=== PATIENT | female | born 1950 | race Caucasian/White ===

== ENCOUNTER → 2016-05-22 | Outpatient (CLI) | payer OTHER, MEDICARE ==
[2016-05-22 16:23] LABS: BLOOD UREA NITROGEN 10 mg/dL (7-22); CALCIUM 10.9 mg/dL (8.7-10.7); CHLORIDE 104 meq/L (98-112); CREATININE 0.5 mg/dL (0.50-1.20); EST GLOMERULAR FILTRATION > 60 (>60 ml/min/1.73m(2)); GLUCOSE 104 mg/dL (78-110); POTASSIUM 4.1 meq/L (3.8-5.2); SODIUM 141 meq/L (135-145)
== END ==
LOC: MOB LAB 14:54
PROVIDERS: ATTEND Nurse Practitioner Family
DX: I10 Essential (primary) hypertension (principal); M85.80 Other specified disorders of bone density and structure, unspecified site; I25.119 Atherosclerotic heart disease of native coronary artery with unspecified angina pectoris; E03.9 Hypothyroidism, unspecified; E66.01 Morbid (severe) obesity due to excess calories; F17.210 Nicotine dependence, cigarettes, uncomplicated
CPT/HCPCS: 36415; 80048; 99213; G0463

== ENCOUNTER → 2016-05-25 | Outpatient (CLI) | payer OTHER, MEDICARE | LOC: MMPC 09:00 | PROVIDERS: ATTEND Nurse Practitioner Family | DX: M81.0 Age-related osteoporosis without current pathological fracture (principal) | CPT/HCPCS: G0463; J0897 ==

== ENCOUNTER 2016-06-25 08:32 | Emergency (ER) | payer OTHER, MEDICARE ==
[2016-06-25] MEDS ORDERED: ONDANSETRON 4 MG/2 ML VIAL IVP ONE (08:53)
[2016-06-25] MEDS ORDERED: Sodium Chloride 0.9% 1,000 ML PRIMARY IV ONE (08:53)
[2016-06-25] MEDS ORDERED: MORPHINE SULFATE 4 MG/1 ML IVP ONE (08:53)
[2016-06-25] MEDS ORDERED: IPRATROPIUM/ALBUTEROL SULFATE 3 ML NEB NEB ONE ×2 (08:53→09:00)
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
[2016-06-25 09:05] LABS: BASOPHILS # (AUTO) 0.03 10*3/UL; BASOPHILS % (AUTO) 0.5 % (0-1); EOSINOPHILS % (AUTO) 4.7 % (0-8); HEMATOCRIT 47.3 % (37.0-47.0); HEMOGLOBIN 15.8 g/dL (12.0-16.0); IMM GRAN % (AUTO) 0.5 % (0-5); IMM GRAN# (AUTO) 0.03 10*3/UL; LYMPHOCYTES # (AUTO) 1.87 10*3/uL; LYMPHOCYTES % (AUTO) 33.5 % (10-50); MEAN CORPUSCULAR HEMOGLOBIN 30.4 PG (27-31); MEAN CORPUSCULAR HGB CONC 33.4 g/dL (33-37); MONOCYTES # (AUTO) 0.55 10*3/UL (0.3-0.8); MONOCYTES % (AUTO) 9.9 % (5-15); NEUTROPHILS # (AUTO) 2.84 10*3/UL; NEUTROPHILS % (AUTO) 50.9 % (50-80); RDW COEFFICIENT OF VARIATION 14.8 % (11.5-14.5); RED BLOOD COUNT 5.19 10^6/uL (4.20-5.40); WHITE BLOOD COUNT 5.58 10^3/uL (4.8-10.8)
[2016-06-25 09:16] LABS: PLATELET MORPHOLOGY COMMENT NORMAL MORPHOLOGY (NORM)
[2016-06-25 09:23] VITALS: RESP 18; TEMP 97
[2016-06-25 09:31] LABS: ASPARTATE AMINO TRANSFERASE 35 IU/L (8-39); BILIRUBIN,TOTAL 0.4 mg/dL (0.3-1.2); BLOOD UREA NITROGEN 13 mg/dL (7-22); CALCIUM 10.8 mg/dL (8.7-10.7); CHLORIDE 105 meq/L (98-112); CREATININE 0.5 mg/dL (0.50-1.20); EST GLOMERULAR FILTRATION > 60 (>60 ml/min/1.73m(2)); GLUCOSE 96 mg/dL (78-110); POTASSIUM 4.2 meq/L (3.8-5.2); SODIUM 140 meq/L (135-145); TOTAL PROTEIN 8.1 g/dL (6.1-8.0)
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
[2016-06-25 09:48] LABS: FREE T4 (FREE THYROXINE) 1.2 ng/dL (0.93-1.71)
[2016-06-25] MEDS ORDERED: LORazepam 2 MG/1 ML VIAL IVP ONE (10:01)
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
[2016-06-25 10:46] LABS: BILIRUBIN,URINE NEGATIVE (NEG); CLARITY,URINE CLEAR (CLEAR); GLUCOSE, URINE (UA) NEGATIVE (NEG); LEUKOCYTE ESTERASE ,URINE NEGATIVE (NEG); NITRATE,URINE NEGATIVE (NEG); OCCULT BLOOD,URINE NEGATIVE (NEG); PH,URINE 6.5 (5.0-8.5); PROTEIN,URINE NEGATIVE (NEG); UROBILINOGEN,URINE 0.2 EU/dL (0.2)
[2016-06-25 10:47] LABS: URINE SAMPLE TYPE CLEAN CATCH URINE
--- NOTE | 2016-06-25 13:57 | EKG ---
[address] [address] Measurements Intervals [place] Rate: 62 P: 77 PA: 184 QRS: 55 QRSD: 110 T: 44 QT: 393 QTc: 399 Interpretive Statements SINUS RHYTHM INCOMPLETE RIGHT BUNDLE BRANCH BLOCK Compared to ECG 11/01/2015 14:45:20 No significant changes Electronically Signed On 06-25-16 16:20:00 MST by Jose Carlos Kay [email or web address]
[2016-06-25] MEDS ORDERED: Sodium Chloride 0.9% 1,000 ML ONE (18:13)
== END 2016-06-25 11:08 | disposition home or self-care (01) ==
LOC: ER 08:32
DX: R07.89 Other chest pain (principal); R10.11 Right upper quadrant pain; R06.02 Shortness of breath; V43.52XA Car driver injured in collision with other type car in traffic accident, initial encounter
CPT/HCPCS: 71010; 71250; 74176; 80053; 81003; 83735; 84439; 84443; 84484; 85025; 93005; 93010; 94640; 96374; 96375; 99284 ×2; J7620; J2060; J2270; J2405; J7030

== ENCOUNTER → 2016-08-06 | Outpatient (CLI) | payer OTHER, MEDICARE | LOC: MMPC 09:00 | PROVIDERS: ATTEND Nurse Practitioner Family | DX: S20.211D Contusion of right front wall of thorax, subsequent encounter (principal); I10 Essential (primary) hypertension; E03.9 Hypothyroidism, unspecified; E55.9 Vitamin D deficiency, unspecified; F32.9 Major depressive disorder, single episode, unspecified; B37.2 Candidiasis of skin and nail; V43.52XD Car driver injured in collision with other type car in traffic accident, subsequent encounter | CPT/HCPCS: 99214; G0463 ==

== ENCOUNTER → 2016-10-01 | Outpatient (CLI) | payer OTHER, MEDICARE | LOC: MMPC 10:00 | PROVIDERS: ATTEND Orthopaedic Surgery | DX: M75.42 Impingement syndrome of left shoulder (principal); M75.22 Bicipital tendinitis, left shoulder; M19.012 Primary osteoarthritis, left shoulder | CPT/HCPCS: 20610 ×2; 99213; G0463; J0702 ==

== ENCOUNTER → 2016-10-22 | Outpatient (CLI) | payer OTHER, MEDICARE | LOC: MMPC 09:00 | PROVIDERS: ATTEND Nurse Practitioner Family | DX: R05 Cough (principal); J02.9 Acute pharyngitis, unspecified; R06.2 Wheezing; R10.816 Epigastric abdominal tenderness | CPT/HCPCS: 99213; G0463 ==

== ENCOUNTER 2016-10-29 13:52 | Emergency (ER) | payer OTHER, MEDICARE ==
[2016-10-29 14:01] VITALS: RESP 16; TEMP 98
[2016-10-29] MEDS ORDERED: HYDROcodone-APAP 5 MG -325 MG TABLET PO ONE (14:16)
[2016-10-29 14:19] LABS: BASOPHILS # (AUTO) 0.03 10*3/UL; BASOPHILS % (AUTO) 0.4 % (0-1); EOSINOPHILS # (AUTO) 0.22 10*3/UL; EOSINOPHILS % (AUTO) 3.3 % (0-8); HEMOGLOBIN 14.8 g/dL (12.0-16.0); LYMPHOCYTES # (AUTO) 1.75 10*3/uL; MEAN CORPUSCULAR HEMOGLOBIN 29.3 PG (27-31); MEAN CORPUSCULAR HGB CONC 32.9 g/dL (33-37); MEAN CORPUSCULAR VOLUME 89.1 FL (81-99); MONOCYTES # (AUTO) 0.62 10*3/UL (0.3-0.8); MONOCYTES % (AUTO) 9.2 % (5-15); NEUTROPHILS % (AUTO) 61.1 % (50-80); PLATELET MORPHOLOGY COMMENT NORMAL MORPHOLOGY (NORM); RBC MORPHOLOGY COMMENT NORMAL MORPHOLOGY (NORM); RED BLOOD COUNT 5.05 10^6/uL (4.20-5.40); WBC MORPHOLOGY COMMENT NORMAL MORPHOLOGY (NORM)
[2016-10-29 14:28] LABS: BLOOD UREA NITROGEN 13 mg/dL (7-22); BUN/CREATININE RATIO 21.66 (6-20); CALCIUM 10.3 mg/dL (8.7-10.7); EST GLOMERULAR FILTRATION > 60 (>60 ml/min/1.73m(2))
--- NOTE | 2016-10-29 15:06 | DI ---
VENOUS DOPPLER ULTRASOUND OF THE LEFT LOWER EXTREMITY, 10/29/2016 2:05 PM: Clinical History: Left leg swelling with erythema. Previous Exam: None. Technique: 2D real-time imaging is supplemented with color Doppler ultrasound. Compression and augmen tation maneuvers were performed. The deep venous system from the groin to the popliteal fossa is norm al. The greater saphenous vein is normal. Reading: Negative venous Doppler ultrasound of the left lower extremity.
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
== END 2016-10-29 15:22 | disposition home or self-care (01) ==
LOC: ER 13:52
DX: M79.662 Pain in left lower leg (principal); M25.462 Effusion, left knee; R22.42 Localized swelling, mass and lump, left lower limb; E78.5 Hyperlipidemia, unspecified; I10 Essential (primary) hypertension; X50.1XXA Overexertion from prolonged static or awkward postures, initial encounter; Y92.129 Unspecified place in nursing home as the place of occurrence of the external cause
CPT/HCPCS: 80048; 85025; 85610; 85730; 93971; 99283

== ENCOUNTER → 2016-10-31 | Outpatient (CLI) | payer OTHER, MEDICARE ==
[2016-10-31 07:12] LABS: BLOOD UREA NITROGEN 12 mg/dL (7-22); CALCIUM 10.9 mg/dL (8.7-10.7); CHOL/HDL RATIO 2.08 RATIO (0-4.0); EST GLOMERULAR FILTRATION > 60 (>60 ml/min/1.73m(2)); GAMMA GLUTAMYL TRANSPEPTIDASE 13 IU/L (8-78); HDL CHOLESTEROL 50 mg/dL (40-150); SERUM CHOLESTEROL 104 mg/dL (120-200)
[2016-10-31 07:29] LABS: VITAMIN D 25-HYDROXY 23.8 NG/ML (30-100)
== END ==
LOC: LAB 06:27
PROVIDERS: ATTEND Nurse Practitioner Family
DX: I10 Essential (primary) hypertension (principal); E55.9 Vitamin D deficiency, unspecified; E03.9 Hypothyroidism, unspecified; E78.5 Hyperlipidemia, unspecified
CPT/HCPCS: 36415; 80048; 82247; 82306; 82465; 82550; 82977; 83718; 84075; 84443; 84450; 84460; 84478

== ENCOUNTER → 2016-11-20 | Outpatient (CLI) | payer OTHER, MEDICARE | LOC: MMPC 10:00 | PROVIDERS: ATTEND Specialist | DX: I25.119 Atherosclerotic heart disease of native coronary artery with unspecified angina pectoris (principal); E78.5 Hyperlipidemia, unspecified; I10 Essential (primary) hypertension; E66.8 Other obesity | CPT/HCPCS: 99213; G0463 ==

== ENCOUNTER → 2016-11-26 | Outpatient (CLI) | payer OTHER, MEDICARE | LOC: MMPC 09:00 | PROVIDERS: ATTEND Nurse Practitioner Family | DX: E78.5 Hyperlipidemia, unspecified (principal); I10 Essential (primary) hypertension; E03.9 Hypothyroidism, unspecified; F32.0 Major depressive disorder, single episode, mild; M81.0 Age-related osteoporosis without current pathological fracture; E55.9 Vitamin D deficiency, unspecified; K21.9 Gastro-esophageal reflux disease without esophagitis | CPT/HCPCS: 99214; G0463; J0897 ==

== ENCOUNTER → 2016-12-03 | Outpatient (CLI) | payer OTHER, MEDICARE ==
--- NOTE | 2016-12-03 15:32 | DI ---
CT BONE DENSITOMETRY OF THE SPINE AND HIP, 12/03/2016 1:57 PM : Clinical History: Osteoporosis Previous Exam: June 25, [address] (QCT) Bone Mineral Densitometry: The [place] scans are normal. Low dose scans are obtained of the lumbar spine and sampling is obtaine d through the midbodies of L1 and L2. The average volumetric bone mineral density (BMD) of the lumbar spine is 91.7 mg/cm3. Volumetric 3D QCT and areal DEXA T-scores and Z-scores are not directly equiva lent. Using the [employer]'s (ACR) volumetric QCT trabecular spine BMD conversion table that is closely equivalent to the areal WHO diagnostic categories, this patient falls into the category of osteopenia. CT X-Ray Absorptiometry (CTXA) Hip Bone Mineral Densitometry: Low dose scans are obtained through the hips for assessment of bone mineral density (BMD) and T-score s and Z-scores of the left hip. Total hip BMD: 0.583 mg/cm2 T-score: -2.9 Z-score: Femoral neck BMD: 0.500 mg/cm2 T-score: -2.7 Z-score: Note: T-scores of the spine and hip exhibit discordant readings approximately 40% of the time in eval uated patients. Changes in BMD determined either by volumetric QCT or areal DEXA are more reliable in assessment of change in a patient's BMD status rather than changes in T-scores. The CTXA hip CT bone mineral density measurements and the resultant T-scores and Z-scores are exact hip DEXA scan equival ents. The femoral neck T-score can be used in the WHO's FRAX program for assessing an untreated patie nt's 10 year fracture risk. READING: Osteopenia of the lumbar spine and osteoporosis of the left hip. The patient is at high risk for development of insufficiency fractures of the left hip.
== END ==
LOC: CT 13:52
PROVIDERS: ATTEND Nurse Practitioner Family
DX: M81.0 Age-related osteoporosis without current pathological fracture (principal)
CPT/HCPCS: 77078

== ENCOUNTER 2018-04-18 11:40 | Inpatient (IN) ==
--- NOTE | 2018-04-18 11:50 | PDOC ---
Lower Extremity Injury HPI - General Chief Complaint: Lower Extremity Problem/Injury Stated Complaint: fall with right hip/right knee pain Date Seen by Provider: 04/18/18 Time Seen by Provider: 11:42 Source: POSITIVE: Patient, EMS Exam Limitations: POSITIVE: No limitations - History of Present Illness Initial Comments: This is a well-developed, well-nourished, 67-year-old female, who is very pleasant, complaining of right hip and right knee pain. Patient underwent radiation treatment yesterday for colon cancer. This morning she fell trying to put her clothes on resulting in a pop, deformity, and pain in her right hip and knee. She was able to crawl to a doorway where she could call to her who has Parkinson's and dementia and alert him that she needed help. The then contacted home health care who came and found the patient down and EMS was alerted. By the time EMS arrived she had been down approximately an hour. She was lying on her left side with complaints of right hip and knee pain and had been incontinent of stool. She denies any loss of consciousness and no other injury pattern. Have you received a tetanus shot in the past 10 years?: Unknown Body Location Affected: REPORTS: Lower Extremity (R) Timing: REPORTS: Abrupt Duration: 1-3 hours Severity: Severe Quality: REPORTS: "Pain" Location at Time of Onset: REPORTS: Home Context of Injury: REPORTS: Fall Location of Injury: REPORTS: Knee (R), Other (Right hip) Modifying Factors: improves with: Movement, Nothing Relieves Associated Symptoms: REPORTS: Unable to Bear Weight, Snapping Any Prior Injuries Related to Current Complaint?: No - Patient Home Medications Home Medications: Home Medications Aspirin [Aspir 81] 81 mg PO DAILY tab 05/02/15 cholecalciferol (vitamin D3) 5,000 unit/mL oral drops 10,000 unit PO DAILY #1 drp 05/28/17 ondansetron 8 mg disintegrating tablet 8 mg TRANSLING .Q6HS #20 tab 08/29/17 atorvastatin 20 mg tablet 20 mg PO QD #90 tab 11/25/17 bimatoprost 0.01 % eye drops 1 drp OP QPM 11/25/17 brimonidine-timolol 0.2 %-0.5 % eye drops 2 drp OP QDAY ml 11/25/17 calcium carbonate 500 mg calcium (1,250 mg) tablet 500 mg PO QDAY tab 11/25/17 capecitabine 500 mg tablet 1,250 mg PO Q12H tab 11/25/17 citalopram 20 mg tablet 20 mg PO QD #90 tab 11/25/17 levothyroxine 112 mcg tablet 112 mcg PO QD #90 tab 11/25/17 lidocaine-prilocaine 2.5 %-2.5 % topical cream 1 applic TOPICAL ONCE PRN #5 g 11/25/17 lorazepam 1 mg tablet 1 mg PO Q8H PRN tab 11/25/17 metoprolol succinate ER 25 mg tablet,extended release 24 hr 25 mg PO DAILY #90 tab 11/25/17 pantoprazole 40 mg tablet,delayed release 40 mg PO BID #180 tab 11/25/17 prochlorperazine maleate 10 mg tablet 10 mg PO Q8H PRN tab 11/25/17 potassium chloride ER 20 mEq tablet,extended release 20 meq PO QDAY 01/08/18 incontinence pad, liner, disposable See Dose Instructions .ROUTE .MEDSUPPLY #200 ea 02/07/18 incontinence pad, liner, disposable See Dose Instructions .ROUTE .MEDSUPPLY #200 ea 03/10/18 diphenoxylate-atropine 2.5 mg-0.025 mg tablet 1 tab PO Q6-8H PRN 04/14/18 - Patient Allergies Allergies/Adverse Reactions: Allergies Allergy/AdvReac Type Severity Reaction Status Date / Time iodine Allergy Intermediate hives/itchi Verified 04/19/18 06:40 ng shellfish derived Allergy Intermediate RASH Verified 04/19/18 06:40 paper tape Allergy Mild BLISTER, Uncoded 04/19/18 06:40 PEELED SKIN Past Medical History - heen HEENT History: Dentures/Partials Cardiovascular History: Hypertension, CHF, Previous HI, Hyperlipidemia Additional Cardiovasular History: HYPERTENSION Respiratory History: Sleep Apnea, Home CPAP Use Gastrointestinal History: GERD, Other (please comment) Additional Gastrointestinal History: HX OF HERNIAS/HAS ABDOMINAL WALL MASS HAS DOCUMENTED 90 POUND WEIGHT LOSS. HAD GASTRIC BYPASS. Colon CA Genitourinary History: Incontinence Additional Genitourinary History: STRESS INCONTINENCE Endocrine History: Hypothyroidism Musculoskeletal History: Osteoporosis, Back Pain, Joint Pain, Other (please comment) Prosthesis or Implant: Yes (R WRIST/BACK hardware) Additional Musculoskeletal History: OSTEOPENIA/ CHRONIC BACK PAIN. Compression fractures. Neurological History: Motion Sickness Blood Disorders: Denies History Psychiatric History: Depression History of Sexually Transmitted Diseases: No Cancer History: Colon History of MDRO: No History of Other Communicable Diseases: Yes (Varicella) Alcohol Use: None In the Past 12 Months, Have Used or Abuse Any Substance: None Previous Surgical History: Yes Type / Date of Surgery: BOWEL RESECTION/S/P GASTRIC BYPASS SURG/ TOTAL ABD HYSTERECTOMY/LAP ELLIE/UMBILICAL HERNIA REPAIR/T&A/Bilat KNEE SCOPES/BACK SURGERY/BREAST BX/COLONOSCOPY IN 2010. R WRIST ORIF Anesthesia Reactions: No Malignant Hyperthermia: No Significant Family History: Asthma, Heart disease, Cancer, Diabetes, Hypertension Additional Family History: Stroke ROS - Limitations ROS Limitations: No Limitations Constitution: REPORTS: Denies Symptoms Cardiovascular: REPORTS: Denies Cardiac Symptoms Respiratory: REPORTS: Denies Resp Symptoms Neurological: REPORTS: Denies Neuro Symptoms Gastrointestinal: REPORTS: Denies GI Symptoms Endocrine: REPORTS: Denies Symptoms Musculoskeletal: REPORTS: Joint Pain (Right hip and knee) Genitourinary: REPORTS: Denies Symptoms Eyes: REPORTS: Denies Symptoms ENT: REPORTS: Denies Symptoms Skin: REPORTS: Denies Skin Symptoms Lympathic: REPORTS: Denies Lympathic Symptoms Immunologic: POSITIVE: Denies Symptoms Psychiatric: POSITIVE: Denies Psych Symptoms Lower Ext Complaint Exam - General Appearance General Appearance: POSITIVE: Alert, Cooperative, Severe Distress - Extremities Lower Extremity: POSITIVE: Skin Intact, No Joint Swelling, Soft Tissue Tenderness (Right hip and groin), Bony Tenderness (Tenderness over the greater trochanter of the femur on the right side as well as tenderness over her right patella and proximal tibia), Deformity (Right hip), Hip Pain on Leg Movement Lower Extremity Ligament: NEGATIVE: Pain on Anterior Drawer, Pain on Posterior Drawer, Laxity on Anterior Drawer, Laxity w/Posterior Drawer, Pain on Medial Stress, Pain on Lateral Stress, Laxity on Medial Stress, Laxity on Lateral Stress, Other Gait: POSITIVE: Unable to Bear Weight, Gait not Tested d/t Pain Neurovascular/Tendon: POSITIVE: Sensation Normal, Motor Normal, No Vascular Compromise Skin: POSITIVE: Warm, Dry - HEENT HEENT: POSITIVE: Head Inspection Nml, Eyes Inspection Nml, Ears Inspection Nml, Nose Inspection Nml, Oral/Dental Inspect. Nml, Pharynx Inspect. Nml, PERRL, EOMI - Neck / Back Neck/Back: POSITIVE: Normal Inspection, Non-Tender - Respiratory / CVS Respiratory / CVS: POSITIVE: Chest Non Tender, No Ecchymosis, Breath Sounds Normal, No Respiratory Distress, Heart Sounds Normal, Regular Rate/Rhythm Peripheral Pulses: Radial (R): 4+, Dorsalis-pedis (R): 4+, Dorsalis-pedis (L): 4+ - Abdomen Abdomen: Soft: (All Quadrants), Normal Bowel Sounds: (All Quadrants), Denies Tenderness: (All Quadrants), No Splenomegaly: (All Quadrants), No Hepatomegaly: (All Quadrants), No Guarding: (All Quadrants), No Rebound: (All Quadrants), No Palpable Pulse: (All Quadrants), No Palpabale Mass: (All Quadrants), No Distention: (All Quadrants), No Rigidity: (All Quadrants) Procedures - Laceration/Wound Repair Did patient have a laceration repair: No Lower Ext Complaint Progress - Results Reviewed by me Xrays/CTs/US Reviewed by me: Yes Discussed with Radiologist: Yes CBC and BMP: 04/18/18 11:40 04/18/18 11:40 Lab Results:: Laboratory Results 04/18/18 04/18/18 04/18/18 11:40 11:40 11:40 WBC 4.47 L RBC 3.81 L Hgb 12.8 Hct 39.0 MCV 102.4 H MCH 33.6 H MCHC 32.8 L RDW Std Deviation 65.5 H RDW Coeff of Driss 17.8 H Plt Count 157 MPV 10.2 Immature Gran % (Auto) 0.4 Neut % (Auto) 76.3 Lymph % (Auto) 11.0 [place] % (Auto) 11.0 Eos % (Auto) 1.1 Baso % (Auto) 0.2 Immature Gran # (Auto) 0.02 Neut # (Auto) 3.41 Lymph # (Auto) 0.49 [place] # (Auto) 0.49 Eos # (Auto) 0.05 Baso # (Auto) 0.01 WBC Morphology Comment Normal morphology Plt Morphology Comment Normal morphology RBC Morph Comment See comments PT 10.7 INR 1.04 Sodium 136 Potassium 4.3 Chloride 108 Carbon Dioxide 23 Anion Gap 5 BUN 12 Creatinine 0.6 Estimated GFR > 60 BUN/Creatinine Ratio 20.00 Glucose 95 Calculated Osmolality 281.0 Calcium 10.1 Magnesium 1.8 Total Bilirubin 0.5 AST 24 ALT 27 Alkaline Phosphatase 130 H C-Reactive Protein 0.6 Total Protein 5.8 L Albumin 2.8 L Globulin 3.0 Albumin/Globulin Ratio 0.90 L Ur Collection Type Urine Color Urine Clarity Urine pH Ur Specific [place] Urine Protein Urine Glucose (UA) Urine Ketones Urine Occult Blood Urine Nitrate Urine Bilirubin Urine Urobilinogen Ur Leukocyte Esterase Ur Culture Indicated? 04/18/18 13:49 WBC RBC Hgb Hct MCV MCH MCHC RDW Std Deviation RDW Coeff of [place]iss Plt Count MPV Immature Gran % (Auto) Neut % (Auto) Lymph % (Auto) [place] % (Auto) Eos % (Auto) Baso % (Auto) Immature Gran # (Auto) Neut # (Auto) Lymph # (Auto) [place] # (Auto) Eos # (Auto) Baso # (Auto) WBC Morphology Comment Plt Morphology Comment RBC Morph Comment PT INR Sodium Potassium Chloride Carbon Dioxide Anion Gap BUN Creatinine Estimated GFR BUN/Creatinine Ratio Glucose Calculated Osmolality Calcium Magnesium Total Bilirubin AST ALT Alkaline Phosphatase C-Reactive Protein Total Protein Albumin Globulin Albumin/Globulin Ratio Ur Collection Type Clean catch urine Urine Color Yellow Urine Clarity Clear Urine pH 5.5 Ur Specific [place] 1.015 Urine Protein Negative Urine Glucose (UA) Negative Urine Ketones Negative Urine Occult Blood Negative Urine Nitrate Negative Urine Bilirubin Negative Urine Urobilinogen 0.2 Ur Leukocyte Esterase Negative Ur Culture Indicated? Culture not set - Patient's Progress Pain Medication Addressed: POSITIVE: Yes Re-Examine Time:: 14:38 Status: POSITIVE: Improved MDM / ED Course: Patient was evaluated, x-ray of her right hip and knee were obtained, labs drawn, IV pain medication, fluids, and Zofran were provided. Findings: X-ray of right hip, per my interpretation, shows a impacted intertrochanteric fracture on the right hip. X-ray of her right knee, per my interpretation, shows no acute abnormalities. CBC shows white count of 4.47. CMP shows an alkaline phosphatase of 130, total protein of 5.8, albumin of 2.8. Magnesium is 1.8. Coag studies show PT of 10.7, INR 1.04. Assessment: Right hip fracture. Plan: I discussed patient with Dr. Ayon, the on-call orthopedic surgeon who will be seeing the patient on the floor. I have discussed patient with , the on-call hospitalist who is admitting the patient. Orthopedic instructions for 5 pounds of [place] traction and trapeze for movement. - Consult Counseled: POSITIVE: Patient, Family, RE: Lab Results, RE: Radiology Results, RE: DX Patient Care Time - Estimated PCT Patient Care Time (In Minutes): 45 Vital Signs - VS Reviewed Vital Signs Reviewed: Yes Discharge Clinical Impression: Intertrochanteric fracture of right hip Discharge Disposition: Admit to Inpatient Condition: Stable Date Decision to Admit to Inpatient: 04/18/18 Time Decision to Admit to Inpatient: 14:30
[2018-04-18] MEDS ORDERED: MORPHINE SULFATE 4 MG/1 ML IVP ONE ×2 (11:57→13:40)
[2018-04-18] MEDS ORDERED: Sodium Chloride 0.9% 1,000 ML PRIMARY IV ONE (11:57)
[2018-04-18] MEDS ORDERED: ONDANSETRON 4 MG/2 ML VIAL IVP ONE (11:57)
[2018-04-18] MEDS ORDERED: LIDOCAINE HCL 2 % 10 ML JELLY URO-JECT TOPICAL PRN (11:57)
[2018-04-18 12:05] LABS: BASOPHILS # (AUTO) 0.01 10*3/UL; BASOPHILS % (AUTO) 0.2 % (0-1); EOSINOPHILS # (AUTO) 0.05 10*3/UL; EOSINOPHILS % (AUTO) 1.1 % (0-8); Hemoglobin [HGB] 12.8 g/dL (12.0-16.0); LYMPHOCYTES # (AUTO) 0.49 10*3/uL; MEAN CORPUSCULAR HEMOGLOBIN 33.6 PG (27-31); MEAN CORPUSCULAR HGB CONC 32.8 g/dL (33-37); MEAN CORPUSCULAR VOLUME 102.4 FL (81-99); MEAN PLATELET VOLUME 10.2 FL (7.4-12.2); MONOCYTES # (AUTO) 0.49 10*3/UL (0.3-0.8); NEUTROPHILS # (AUTO) 3.41 10*3/UL; NEUTROPHILS % (AUTO) 76.3 % (50-80); RED BLOOD COUNT 3.81 10^6/uL (4.20-5.40)
[2018-04-18 12:13] LABS: BLOOD UREA NITROGEN 12 mg/dL (7-22); SERUM ALBUMIN 2.8 g/dL (3.5-4.8)
[2018-04-18 12:16] LABS: PLATELET MORPHOLOGY COMMENT NORMAL MORPHOLOGY (NORM); RBC MORPHOLOGY COMMENT SEE COMMENTS (NORM); WBC MORPHOLOGY COMMENT NORMAL MORPHOLOGY (NORM)
[2018-04-18 13:55] LABS: BILIRUBIN,URINE NEGATIVE (NEG); CLARITY,URINE CLEAR (CLEAR); COLOR,URINE YELLOW (Y); GLUCOSE, URINE (UA) NEGATIVE (NEG); OCCULT BLOOD,URINE NEGATIVE (NEG); PH,URINE 5.5 (5.0-8.5); PROTEIN,URINE NEGATIVE (NEG); UROBILINOGEN,URINE 0.2 EU/dL (0.2)
[2018-04-18 13:58] LABS: URINE SAMPLE TYPE CLEAN CATCH URINE
[2018-04-18] MEDS ORDERED: LORazepam 2 MG/1 ML VIAL IVP ONE (14:04)
--- NOTE | 2018-04-18 15:29 | PDOC ---
HPI - History of Present Illness Date of Service: 04/18/18 Time of Service: 15:00 Chief Complaint: Pain in the right hip after a fall History of Present Illness: This is a 67 years old female with medical history significant for history of hypertension, sleep apnea, hypothyroidism and history of colon cancer for which she had right hemicolectomy back in July 2017, she underwent chemotherapy and was done with its last month, currently undergoing radiation adjuvant therapy. She was trying to put her cloths on so that she can go to [place] to have her radiation treatment and she is not clear about what happened she is not sure whether she passed out or not but she fell and was complaining from pain in her hip was unable to get up the physical therapist who came in found her and also a neighbor found her and they called the medics and they brought her to the ER. Evaluation in the ER revealed right hip fracture and because of that she was admitted. Currently it seems that her pain is controlled with the medication that she received in the ER. She is denying other symptoms there's no chest pain, no shortness of breath and no nausea. She lives with her who suffers from dementia, she has a caregiver and she uses a walker at home. She did report recent diarrhea and they think its related to the Radiation treatment. Past Medical History Medical History: 1. Hypertension. 2. Hypothyroidism. 3. History of obstructive sleep apnea. 4. Anxiety and depression. 5. Coronary artery disease by stress test. No heart catheterization or stents. 6. History of colon cancer status post right hemicolectomy and chemotherapy. Currently undergoing adjuvant radiation treatment Surgical History: 1. Cholecystectomy. 2. Gastric bypass. 3. Hysterectomy. 4. History of arthroscopic knee surgery. 5. Tonsillectomy. 6. History of vertebral fusion. 7. Right hemicolectomy for colon cancer Pertinent Family History: Father had emphysema Past Social History: . Does not have children. She does smoke a pack per day. No alcohol. No drugs. She has a caregiver help with shopping. Caregiver also with daycare to [place] for her radiation treatments. In the Past 12 Months, Have Used or Abuse Any of the Following Substance: None Alcohol Use: None Medication / Allergies Home Medications: Home Medications Medication Instructions Recorded Confirmed Type Aspirin [Aspir 81] 81 mg PO DAILY tab 05/02/15 04/15/18 History cholecalciferol (vitamin D3) 5,000 10,000 unit PO DAILY #1 drp 05/28/17 04/15/18 History unit/mL oral drops ondansetron 8 mg disintegrating 8 mg TRANSLING .Q6HS #20 tab 08/29/17 04/15/18 Rx tablet atorvastatin 20 mg tablet 20 mg PO QD #90 tab 11/25/17 04/15/18 Rx bimatoprost 0.01 % eye drops 1 drp OP QPM 11/25/17 04/15/18 History brimonidine-timolol 0.2 %-0.5 % 2 drp OP QDAY ml 11/25/17 04/15/18 History eye drops calcium carbonate 500 mg calcium 500 mg PO QDAY tab 11/25/17 04/15/18 History (1,250 mg) tablet capecitabine 500 mg tablet 1,250 mg PO Q12H tab 11/25/17 04/15/18 History citalopram 20 mg tablet 20 mg PO QD #90 tab 11/25/17 04/15/18 Rx levothyroxine 112 mcg tablet 112 mcg PO QD #90 tab 11/25/17 04/15/18 Rx lidocaine-prilocaine 2.5 %-2.5 % 1 applic TOPICAL ONCE PRN #5 g 11/25/17 04/15/18 Rx topical cream lorazepam 1 mg tablet 1 mg PO Q8H PRN tab 11/25/17 04/15/18 History metoprolol succinate ER 25 mg 25 mg PO DAILY #90 tab 11/25/17 04/15/18 Rx tablet,extended release 24 hr pantoprazole 40 mg tablet,delayed 40 mg PO BID #180 tab 11/25/17 04/15/18 Rx release prochlorperazine maleate 10 mg 10 mg PO Q8H PRN tab 11/25/17 04/15/18 History tablet potassium chloride ER 20 mEq 20 meq PO QDAY 01/08/18 04/15/18 History tablet,extended release incontinence pad, liner, disposable See Dose Instructions .ROUTE 02/07/18 04/15/18 Rx .MEDSUPPLY #200 ea incontinence pad, liner, disposable See Dose Instructions .ROUTE 03/10/18 04/15/18 Rx .MEDSUPPLY #200 ea diphenoxylate-atropine 2.5 1 tab PO Q6-8H PRN 04/14/18 04/15/18 History mg-0.025 mg tablet Allergies/Adverse Reactions: Allergies Allergy/AdvReac Type Severity Reaction Status Date / Time iodine Allergy Intermediate hives/itchi Verified 04/15/18 10:39 ng shellfish derived Allergy Intermediate RASH Verified 04/15/18 10:39 paper tape Allergy Mild BLISTER, Uncoded 04/14/18 16:08 PEELED SKIN Review of Systems - Review of Systems All Systems: Reviewed & No Additional Complaints Except as Stated Exam - General General Appearance: No Acute Distress, Cooperative, Obese - Head Head Exam: Normal Inspection - Eye Eye Exam: POSITIVE: Normal Appearance - ENT ENT Exam: POSITIVE: Normal Exam - Neck Neck Exam: Normal Inspection - Respiratory Respiratory Exam: POSITIVE: Clear to Auscultation - Bilaterally - Cardiovascular Cardiovascular Exam: POSITIVE: RRR - GI/Abdominal GI/Abdominal Exam: POSITIVE: Normal Bowel Sounds, Non Tender, Non Distended, Soft, No Organomegaly - Rectal Rectal Exam: POSITIVE: Deferred - External Exam: POSITIVE: Deferred Exam: POSITIVE: Deferred - Extremities Additional Extremities Exam Details: Shortened and externally rotated right leg - Back Back Exam: POSITIVE: Normal Inspection - Neurological Neurological Exam: POSITIVE: Alert, Oriented x 3, CN II-XII Intact, No Facial Droop, Speech Intact / Clear Additional Neurological Exam Details: Movements is restricted the right lower extremity because of pain - Psychiatric Psychiatric Exam: POSITIVE: Normal Affect Results - Labs CBC and BMP: 04/18/18 11:40 04/18/18 11:40 - EKG Data -: EKG Interpreted by Me Rate: Bradycardia - EKG Data EKG Interpretation: Other (Sinus bradycardia with incomplete right bundle branch block) - Imaging Status: Report Reviewed by Me (CT Slightly displaced and slightly comminuted right intertrochanteric fracture. Knee X ray Mild tricompartmental osteoarthritis. No fractures. Hip X ray Slightly displaced right proximal femo ral intertrochanteric fracture.) Assessment and Plan - Patient Problems (1) Intertrochanteric fracture of right hip Current Visit: Yes Status: Acute Comment: Continue pain medications. Will puts her in [place] traction. Dr. Ayon already knows about her, he will see her today and decide whether she can have the surgery tomorrow or the day after it depends on when he will get the parts that he may need. in terms of preoperative evaluation she has one independent predictor of major cardiac complication that include her positive stress test that wer puts her risk of cardiac , nonfatal myocardial infarction and fatal cardiac arrest at 1%. I think since her need for surgery seems to be urgent she can proceed with surgery will deal with postoperative complications as they arise. She did have surgery back in July and one of the complication that she had was hypoxia at that time it seemed to be secondary to volume overload and responded to Lasix. Code(s): S72.141A - Displaced intertrochanteric fracture of right femur, initial encounter for closed fracture (2) Benign hypertension Current Visit: No Status: Chronic Comment: Same med (3) Hypothyroidism Current Visit: No Status: Chronic Comment: Same med Qualifiers: Hypothyroidism type: acquired Qualified Code(s): E03.9 - Hypothyroidism, unspecified (4) Gastroesophageal reflux disease Current Visit: No Status: Chronic Comment: Continue Protonix Code(s): K21.9 - Gastro-esophageal reflux disease without esophagitis Qualifiers: Esophagitis presence: with esophagitis Qualified Code(s): K21.0 - Gastro- esophageal reflux disease with esophagitis
--- NOTE | 2018-04-18 15:50 | EKG ---
[address] [address] Measurements Intervals [place] Rate: 55 P: 92 SC: 179 QRS: 51 QRSD: 116 T: 45 QT: 417 QTc: 407 Interpretive Statements SINUS BRADYCARDIA RIGHT VENTRICULAR CONDUCTION DELAY Compared to ECG 01/14/2018 13:32:38 Sinus rhythm no longer present Sinus arrhythmia no longer present Electronically Signed On 04-19-18 13:57:[address] [facility] by Jose Carlos Kay [email or web address]
[2018-04-18] MEDS ORDERED: ONDANSETRON 4 MG/2 ML VIAL IVP PRN (15:54)
[2018-04-18] MEDS ORDERED: CALCIUM CARBONATE 500 MG (TUMS) CHEWABLE TABLET PO PRN (15:54)
[2018-04-18] MEDS ORDERED: DOCUSATE 100 MG CAPSULE PO PRN (15:54)
[2018-04-18] MEDS ORDERED: ACETAMINOPHEN 325 MG TABLET PO PRN (15:54)
[2018-04-18] MEDS ORDERED: LIDOCAINE W/ SODIUM BICARB 0.5 ML SYR SUBD PRN (15:54)
[2018-04-18] MEDS ORDERED: Diphenoxylate/Atropine 2.5/0.025 mg Tab PO PRN (15:57)
[2018-04-18] MEDS ORDERED: Prochlorperazine Tab 10 MG TAB PO PRN (15:57)
--- NOTE | 2018-04-18 16:11 | DI ---
CT Lower Extremity WO Contrast,04/18/2018 2:06 PM: Clinical History: Right hip fracture Previous Exam: None at this facility. Findings: Multiple helically acquired CT images are obtained through the right hip without contrast, and demons trate a slightly displaced and slightly comminuted right intertrochanteric fracture. There is no fracture of the superior and inferior pubic rami. There is mild diffuse osteopenia. Impression: Slightly displaced and slightly comminuted right intertrochanteric fracture.
--- NOTE | 2018-04-18 16:14 | DI ---
XR KNEE 1 OR 2 VWS,04/18/2018 11:57 AM: Clinical History: Right knee pain Previous Exam: None at this facility. Findings: AP and lateral views of the right knee are obtained, and demonstrate anatomic alignment without fract ures. There is mild loss of joint space tricompartmentally. Impression: Mild tricompartmental osteoarthritis. No fractures.
--- NOTE | 2018-04-18 16:18 | DI ---
XR HIP COMPLETE MIN 2VW U/L,04/18/2018 11:57 AM: Clinical History: Pain and deformity. Previous Exam: None at this facility. Findings: AP, frog-leg and crosstable lateral views of the right hip are obtained and demonstrate a slightly di splaced intertrochanteric right proximal femoral fracture. Impression: Slightly displaced right proximal femoral intertrochanteric fracture.
[2018-04-18] MEDS: MORPHINE SULFATE 2 MG/1 ML IVP PRN ×2 (16:38→19:07)
[2018-04-18] MEDS ORDERED: HEPARIN 500 UNIT/5 ML SYRINGE FOR CENTRAL LINE IVP PRN (17:13)
[2018-04-18] MEDS ORDERED: Lactated Ringers 1,000 ML PRIMARY IV SCH (17:30)
--- NOTE | 2018-04-18 20:18 | CONSULT ---
Consult Note - Consult Reason for Consult: PreOp Consulation : Ortho Primary Care Provider: Zofia Elena MS, DIRECTOR OF HOUSING AND ENERGY SERVICES - History of Present Illness History of Present Illness: This patient is a pleasant 67-year-old female who is admitted for right intertro chanteric hip fracture. She fell at her home earlier this morning. She is admitted by ambulance. Refer to Dr. Zambrano's thorough note. She is in need of IM hip screw fixation of the fracture. We will do this with a Depuy affixus nail. Exam of his pleasant female lying supine. Right leg is in Lepe's traction. No significant distress. Neurovascular exam appears to be intact. X-rays and CAT scan of her hip are reviewed. These show a right intertrochanteric hip fracture of the lesser fractured off. The fracture extends up into the superior neck as well. Inferior neck is still intact. Impression: Right intertrochanteric hip fracture patient with multiple comorbidities. She is a smoker and is undergoing radiation treatment for colon cancer. Plan on proceeding with an IM hip screw tomorrow. Risks include but are not limited to infection, hardware failure or cut out, blood clot, malunion, nonunion, neurovascular injury, or anesthetic risks. She agrees to proceed. Consent will be obtained in the morning. Plan on doing this around 8:30 tomorrow morning. Past Medical History Medical History: 1. Hypertension. 2. Hypothyroidism. 3. History of obstructive sleep apnea. 4. Anxiety and depression. 5. Coronary artery disease by stress test. No heart catheterization or stents. 6. History of colon cancer status post right hemicolectomy and chemotherapy. Currently undergoing adjuvant radiation treatment Surgical History: 1. Cholecystectomy. 2. Gastric bypass. 3. Hysterectomy. 4. History of arthroscopic knee surgery. 5. Tonsillectomy. 6. History of vertebral fusion. 7. Right hemicolectomy for colon cancer Pertinent Family History: Father had emphysema Past Social History: . Does not have children. She does smoke a pack per day. No alcohol. No drugs. She has a caregiver help with shopping. Caregiver also with daycare to [place] for her radiation treatments. In the Past 12 Months, Have Used or Abuse Any of the Following Substance: None Alcohol Use: None Medication / Allergies Home Medications: Home Medications Medication Instructions Recorded Confirmed Type Aspirin [Aspir 81] 81 mg PO DAILY tab 05/02/15 04/15/18 History cholecalciferol (vitamin D3) 5,000 10,000 unit PO DAILY #1 drp 05/28/17 04/15/18 History unit/mL oral drops ondansetron 8 mg disintegrating 8 mg TRANSLING .Q6HS #20 tab 08/29/17 04/15/18 Rx tablet atorvastatin 20 mg tablet 20 mg PO QD #90 tab 11/25/17 04/15/18 Rx bimatoprost 0.01 % eye drops 1 drp OP QPM 11/25/17 04/15/18 History brimonidine-timolol 0.2 %-0.5 % 2 drp OP QDAY ml 11/25/17 04/15/18 History eye drops calcium carbonate 500 mg calcium 500 mg PO QDAY tab 11/25/17 04/15/18 History (1,250 mg) tablet capecitabine 500 mg tablet 1,250 mg PO Q12H tab 11/25/17 04/15/18 History citalopram 20 mg tablet 20 mg PO QD #90 tab 11/25/17 04/15/18 Rx levothyroxine 112 mcg tablet 112 mcg PO QD #90 tab 11/25/17 04/15/18 Rx lidocaine-prilocaine 2.5 %-2.5 % 1 applic TOPICAL ONCE PRN #5 g 11/25/17 04/15/18 Rx topical cream lorazepam 1 mg tablet 1 mg PO Q8H PRN tab 11/25/17 04/15/18 History metoprolol succinate ER 25 mg 25 mg PO DAILY #90 tab 11/25/17 04/15/18 Rx tablet,extended release 24 hr pantoprazole 40 mg tablet,delayed 40 mg PO BID #180 tab 11/25/17 04/15/18 Rx release prochlorperazine maleate 10 mg 10 mg PO Q8H PRN tab 11/25/17 04/15/18 History tablet potassium chloride ER 20 mEq 20 meq PO QDAY 01/08/18 04/15/18 History tablet,extended release incontinence pad, liner, disposable See Dose Instructions .ROUTE 02/07/18 04/15/18 Rx .MEDSUPPLY #200 ea incontinence pad, liner, disposable See Dose Instructions .ROUTE 03/10/18 04/15/18 Rx .MEDSUPPLY #200 ea diphenoxylate-atropine 2.5 1 tab PO Q6-8H PRN 04/14/18 04/15/18 History mg-0.025 mg tablet Allergies/Adverse Reactions: Allergies Allergy/AdvReac Type Severity Reaction Status Date / Time iodine Allergy Intermediate hives/itchi Verified 04/15/18 10:39 ng shellfish derived Allergy Intermediate RASH Verified 04/15/18 10:39 paper tape Allergy Mild BLISTER, Uncoded 04/14/18 16:08 PEELED SKIN Exam - Vitals Vital Signs: Vital Signs Temperature 97.9 F Temperature Source Temporal Artery Scan Pulse Rate [Pulse Oximeter] 59 Respiratory Rate 16 Blood Pressure [Right Arm] 110/54 Pulse Ox 95 Oxygen Flow Rate 3 Oxygen Delivery Method Nasal Cannula Height 5 ft 1 in Weight 168 lb Results - Labs CBC and BMP: 04/18/18 11:40 04/18/18 11:40
[2018-04-18] MEDS: PANTOPRAZOLE 40 MG TABLET PO SCH (20:45)
[2018-04-18] MEDS ORDERED: ATORVASTATIN 20 MG TABLET PO SCH (21:00)
[2018-04-19] MEDS: MORPHINE SULFATE 2 MG/1 ML IVP PRN ×5 (00:02→23:11)
[2018-04-19] MEDS ORDERED: LEVOTHYROXINE 112 MCG TABLET PO SCH (05:30)
[2018-04-19] MEDS ORDERED: PROPOFOL 10 MG/1 ML (200 MG/20 ML) VIAL IV ONE (07:19)
[2018-04-19] MEDS ORDERED: fentaNYL Inj 250 MCG/5 ML VIAL ONE (07:19)
[2018-04-19] MEDS ORDERED: LIDOCAINE MPF 2% - 5 ML (20 MG/1 ML) ONE (07:19)
[2018-04-19] MEDS ORDERED: MIDAZOLAM HCL 2 MG/2 ML VIAL ONE (07:19)
[2018-04-19] MEDS ORDERED: ceFAZolin Inj 2gm (Premix) 2 GM/50 ML BAG IV ONE ×2 (07:20→07:24)
[2018-04-19] MEDS ORDERED: BUPivacaine Inj 0.25% PF - 10ml vial ONE (07:49)
[2018-04-19] MEDS ORDERED: KETAMINE 100 MG/1 ML - 5 ML ONE (08:34)
[2018-04-19] MEDS ORDERED: BUPivacaine Liposome/PF (Exparel) Inj 20ml vial INFIL ONE (08:43)
[2018-04-19] MEDS ORDERED: POTASSIUM CHLORIDE 20 MEQ TAB PO SCH (09:00)
[2018-04-19] MEDS ORDERED: CITALOPRAM 20 MG TABLET PO SCH (09:00)
[2018-04-19] MEDS ORDERED: METOPROLOL SUCCINATE 25 MG SR 24H TABLET PO SCH (09:00)
--- NOTE | 2018-04-19 10:19 | ORTHO.OP ---
Surgery Date: 04/19/18 Preoperative Diagnosis: Right intertrochanteric hip fracture Postoperative Diagnosis: Same Procedure: Open treatment right intertrochanter fracture using a intramedullary hip screw (Biomet affixus nail.) Surgeon: Yusuf Ayon MD Director Of Rehabilitation: PRIMO Zavala Anesthesia Provider: Meliton Carrion CRNA Anesthesia Type: General Estimated Blood Loss (mL): 125 Fluids: 1800 mL crystalloid Complications: None Operative Summary: Taken to recovery in stable condition.
[2018-04-19] MEDS ORDERED: ONDANSETRON 4 MG/2 ML VIAL ONE (10:22)
[2018-04-19] MEDS ORDERED: KETOROLAC 30 MG/1 ML VIAL ONE (10:22)
[2018-04-19] MEDS ORDERED: CALCIUM CARBONATE 500 MG (TUMS) CHEWABLE TABLET PO PRN (11:09)
[2018-04-19] MEDS ORDERED: ACETAMINOPHEN 325 MG TABLET PO PRN (11:09)
[2018-04-19] MEDS ORDERED: HEPARIN 500 UNIT/5 ML SYRINGE FOR CENTRAL LINE IVP PRN (11:09)
[2018-04-19] MEDS ORDERED: LIDOCAINE W/ SODIUM BICARB 0.5 ML SYR SUBD PRN (11:09)
[2018-04-19] MEDS ORDERED: DOCUSATE 100 MG CAPSULE PO PRN (11:09)
[2018-04-19] MEDS ORDERED: ONDANSETRON 4 MG/2 ML VIAL IVP PRN ×2 (11:09)
[2018-04-19] MEDS: PANTOPRAZOLE 40 MG TABLET PO SCH ×2 (11:24→16:29)
--- NOTE | 2018-04-19 11:38 | CRNA.PROGR ---
Anesthesia Time - Procedure/Recovery Time Start Date: 04/19/18 End Date: 04/19/18 Anesthesia : Time In: 07:57 Anesthesia : Time Out: 10:44 Anesthesia : Total Time: 167 - Total Anesthesia Time Total Anesthesia Time (minutes): 167 - Other Weight: 76.204 kg Height: 5 ft 1 in Body Mass Index (BMI): 31.7 Physical Status: P3 Anesthesia Type: General Anesthesia : LMA
--- NOTE | 2018-04-19 11:38 | CRNA.PROGR ---
Anesthesia Recovery Phase I - Post Anesthesia Evaluation Patient's Condition on Arrival in Phase I: Stable Pain Level: 0
--- NOTE | 2018-04-19 12:19 | DI ---
RIGHT HIP, 04/19/2018 10:31 AM: Clinical History: Intertrochanteric fracture. Status post ORIF. Previous Exam: 04/18/2018. Hip View: AP and cross table lateral. Soft Tissues: Normal. Bony Pelvis: The visualized portions are intact. Femoral Head/Neck Junction: A short intramedullary lori has been inserted and this is transfixed with a distal threaded screw. 2 threaded screws transfix the base of the neck/intertrochanteric fracture. The fracture is anatomic alignment and position. Acetabulum: Intact Hip Joint Space: Normal joint space. Reading: Status post ORIF of a base of the neck/intertrochanteric fracture. Alignment and position are anatomi c.
--- NOTE | 2018-04-19 12:30 | PDOC(PROG) ---
Date of Service: 04/19/18 Time of Service: 11:00 Interval History: Subjective Patient was seen postsurgery. She is denying complaint. There is no shortness of breath, no nausea. No pain. Objective : Data - Labs CBC and BMP: 04/18/18 11:40 04/18/18 11:40 Objective : Exam - General General Appearance: No Acute Distress, Cooperative - Head Head Exam: Normal Inspection - Eye Eye Exam: Normal Appearance - ENT ENT Exam: Normal Exam - Neck Neck Exam: Normal Inspection - Respiratory Respiratory Exam: Clear to Auscultation - Bilaterally - Cardiovascular Cardiovascular Exam: RRR - GI/Abdominal GI/Abdominal Exam: Normal Bowel Sounds, Non Tender, Non Distended, Soft - Rectal Rectal Exam: Deferred - External Exam: Deferred Assessment and Plan - Patient Problems (1) Intertrochanteric fracture of right hip Current Visit: Yes Status: Acute Comment: Status post surgery. PT/OT he will be consulted. Will discuss with Dr. Ayon DVT prophylaxis Code(s): S72.141A - Displaced intertrochanteric fracture of right femur, initial encounter for closed fracture (2) Benign hypertension Current Visit: No Status: Chronic Comment: Resume same medications (3) Hypothyroidism Current Visit: No Status: Chronic Comment: Same med Qualifiers: Hypothyroidism type: acquired Qualified Code(s): E03.9 - Hypothyroidism, unspecified (4) Gastroesophageal reflux disease Current Visit: No Status: Chronic Comment: Continue Protonix Code(s): K21.9 - Gastro-esophageal reflux disease without esophagitis Qualifiers: Esophagitis presence: with esophagitis Qualified Code(s): K21.0 - Gastro- esophageal reflux disease with esophagitis
[2018-04-19] MEDS: HYDROcodone-APAP 7.5 MG-325 MG TABLET PO PRN ×3 (12:39→23:07)
[2018-04-19] MEDS: ceFAZolin Inj 2gm (Premix) 2 GM/50 ML BAG IV SCH (16:29)
[2018-04-19] MEDS: ATORVASTATIN 20 MG TABLET PO SCH (20:45)
[2018-04-19] MEDS: DOCUSATE 100 MG CAPSULE PO SCH (20:49)
[2018-04-20] MEDS: ceFAZolin Inj 2gm (Premix) 2 GM/50 ML BAG IV SCH (00:19)
[2018-04-20] MEDS: HYDROcodone-APAP 7.5 MG-325 MG TABLET PO PRN ×2 (03:00→07:25)
[2018-04-20 05:35] LABS: BASOPHILS # (AUTO) 0 10*3/UL; BASOPHILS % (AUTO) 0 % (0-1); EOSINOPHILS # (AUTO) 0.06 10*3/UL; EOSINOPHILS % (AUTO) 1.9 % (0-8); Hematocrit [HCT] 31.5 % (37.0-47.0); Hemoglobin [HGB] 10.1 g/dL (12.0-16.0); MEAN CORPUSCULAR HEMOGLOBIN 33.2 PG (27-31); MEAN CORPUSCULAR HGB CONC 32.1 g/dL (33-37); MEAN CORPUSCULAR VOLUME 103.6 FL (81-99); MEAN PLATELET VOLUME 10.1 FL (7.4-12.2); MONOCYTES # (AUTO) 0.32 10*3/UL (0.3-0.8); MONOCYTES % (AUTO) 10.2 % (5-15); NEUTROPHILS # (AUTO) 2.33 10*3/UL; NEUTROPHILS % (AUTO) 74.5 % (50-80); RED BLOOD COUNT 3.04 10^6/uL (4.20-5.40)
[2018-04-20 05:49] LABS: BLOOD UREA NITROGEN 11 mg/dL (7-22)
[2018-04-20] MEDS: LEVOTHYROXINE 112 MCG TABLET PO SCH (05:58)
[2018-04-20 06:06] LABS: PLATELET MORPHOLOGY COMMENT NORMAL MORPHOLOGY (NORM); RBC MORPHOLOGY COMMENT NORMAL MORPHOLOGY (NORM); WBC MORPHOLOGY COMMENT NORMAL MORPHOLOGY (NORM)
[2018-04-20] MEDS: TIMOLOL OP SCH ×2 (06:30→11:37)
[2018-04-20] MEDS: BRIMONIDINE TARTRATE OP SCH ×2 (06:30→11:37)
[2018-04-20] MEDS: PANTOPRAZOLE 40 MG TABLET PO SCH ×2 (07:10→17:06)
[2018-04-20] MEDS: MORPHINE SULFATE 2 MG/1 ML IVP PRN (07:40)
--- NOTE | 2018-04-20 08:11 | ORTHO.PROG ---
Last Taken Vital Signs: Vital Signs - Last Taken Temperature 97.2 F 04/20/18 05:00 Pulse Rate 55 L 04/20/18 07:00 Respiratory Rate 16 04/20/18 05:00 Blood Pressure 98/50 04/20/18 05:00 Pulse Ox 96 04/20/18 05:00 Subjective: Patient in chair. Getting ready to get up with physical therapy. Silviano was in the room. Patient complains of right knee pain and also nausea hip is actually doing pretty well. Objective: Vital signs stable patient afebrile. Right knee is tender to touch. No instability. No effusion. Right hip dressings are clean and dry. Hemoglobin and hematocrit 10 and 31. Assessment: Impression: Doing fairly well postop day 1 from IM rodding of right hip fracture. Patient does have some nausea and knee pain. Plan: Plan: Is to get an x-ray of her right knee and also make sure she is taking her nausea medication. Transfers in PT.
[2018-04-20] MEDS ORDERED: CHOLECALCIFEROL 1000 IU TABLET PO SCH (09:00)
[2018-04-20] MEDS ORDERED: METOPROLOL SUCCINATE 25 MG SR 24H TABLET PO SCH (09:00)
--- NOTE | 2018-04-20 09:19 | PDOC(PROG) ---
Date of Service: 04/20/18 Time of Service: 09:20 Interval History: Subjective Patient is complaining from pain in the right knee and the hip. It seems though that her pain is controlled with the current pain medications. She has nausea but she said its going on since she started the radiation treatment. Objective : Data - Labs CBC and BMP: 04/20/18 04:30 04/20/18 04:30 Objective : Exam - General General Appearance: No Acute Distress, Cooperative - Head Head Exam: Normal Inspection - Eye Eye Exam: Normal Appearance - ENT ENT Exam: Normal Exam - Neck Neck Exam: Normal Inspection - Respiratory Respiratory Exam: Clear to Auscultation - Bilaterally - Cardiovascular Cardiovascular Exam: RRR - GI/Abdominal GI/Abdominal Exam: Normal Bowel Sounds, Non Tender, Non Distended, Soft, No Organomegaly - Rectal Rectal Exam: Deferred - External Exam: Deferred - Extremities Extremities Exam: Normal Inspection - Back Back Exam: Normal Inspection - Neurological Neurological Exam: Alert, Oriented x 3, CN II-XII Intact - Psychiatric Psychiatric Exam: Normal Affect Assessment and Plan - Patient Problems (1) Intertrochanteric fracture of right hip Current Visit: Yes Status: Acute Comment: Status post surgery. For DVT prophylaxis will start her on Lovenox. Continue PT and OT. Code(s): S72.141A - Displaced intertrochanteric fracture of right femur, initial encounter for closed fracture (2) Benign hypertension Current Visit: No Status: Chronic Comment: Blood pressure is on the low side will hold her metoprolol today. (3) Hypothyroidism Current Visit: No Status: Chronic Comment: Same med Qualifiers: Hypothyroidism type: acquired Qualified Code(s): E03.9 - Hypothyroidism, unspecified (4) Gastroesophageal reflux disease Current Visit: No Status: Chronic Comment: Continue Protonix Code(s): K21.9 - Gastro-esophageal reflux disease without esophagitis Qualifiers: Esophagitis presence: with esophagitis Qualified Code(s): K21.0 - Gastro- esophageal reflux disease with esophagitis
[2018-04-20] MEDS: CITALOPRAM 20 MG TABLET PO SCH (09:38)
[2018-04-20] MEDS: POTASSIUM CHLORIDE 20 MEQ TAB PO SCH (09:38)
[2018-04-20] MEDS: CALCIUM CARBONATE 500 MG (TUMS) CHEWABLE TABLET PO SCH (09:38)
[2018-04-20] MEDS: DOCUSATE 100 MG CAPSULE PO SCH ×2 (09:38→20:30)
[2018-04-20] MEDS: Diphenoxylate/Atropine 2.5/0.025 mg Tab PO PRN (12:19)
[2018-04-20] MEDS: ENOXAPARIN SODIUM 40 MG/0.4 ML SYRINGE SUBCUT SCH (12:19)
[2018-04-20] MEDS: Prochlorperazine Tab 10 MG TAB PO PRN (12:20)
[2018-04-20] MEDS: oxyCODONE/APAP 7.5/325 Tab 1 TAB TAB PO PRN ×2 (12:54→17:05)
[2018-04-20] MEDS: BRIMONIDINE TARTRATE LEFT EYE SCH ×2 (14:19→20:30)
[2018-04-20] MEDS: TIMOLOL LEFT EYE SCH ×2 (14:19→20:30)
[2018-04-20] MEDS: LATANOPROST 0.005% LEFT EYE SCH (20:30)
[2018-04-20] MEDS: EYE LEFT EYE SCH (20:30)
[2018-04-20] MEDS: ATORVASTATIN 20 MG TABLET PO SCH (20:30)
[2018-04-20] MEDS ORDERED: BIMATOPROST 0.01% RIGHT EYE SCH (21:00)
[2018-04-20] MEDS ORDERED: EYE RIGHT EYE SCH (21:00)
[2018-04-20] MEDS ORDERED: BIMATOPROST 0.01% OP SCH (21:00)
[2018-04-20] MEDS ORDERED: EYE OP SCH (21:00)
[2018-04-21] MEDS: oxyCODONE/APAP 7.5/325 Tab 1 TAB TAB PO PRN ×5 (02:15→20:22)
[2018-04-21] MEDS: MORPHINE SULFATE 2 MG/1 ML IVP PRN ×4 (02:15→19:03)
[2018-04-21] MEDS: DOCUSATE 100 MG CAPSULE PO SCH ×3 (04:51→20:23)
[2018-04-21] MEDS: LEVOTHYROXINE 112 MCG TABLET PO SCH (05:09)
[2018-04-21] MEDS: PANTOPRAZOLE 40 MG TABLET PO SCH ×2 (06:46→16:46)
[2018-04-21 07:32] LABS: BASOPHILS # (AUTO) 0 10*3/UL; BASOPHILS % (AUTO) 0 % (0-1); EOSINOPHILS # (AUTO) 0.02 10*3/UL; EOSINOPHILS % (AUTO) 1.1 % (0-8); Hematocrit [HCT] 31.2 % (37.0-47.0); Hemoglobin [HGB] 10.1 g/dL (12.0-16.0); LYMPHOCYTES # (AUTO) 0.35 10*3/uL; MEAN CORPUSCULAR HEMOGLOBIN 33.4 PG (27-31); MEAN CORPUSCULAR HGB CONC 32.4 g/dL (33-37); MEAN CORPUSCULAR VOLUME 103.3 FL (81-99); MEAN PLATELET VOLUME 9.5 FL (7.4-12.2); MONOCYTES # (AUTO) 0.33 10*3/UL (0.3-0.8); MONOCYTES % (AUTO) 17.9 % (5-15); NEUTROPHILS # (AUTO) 1.13 10*3/UL; NEUTROPHILS % (AUTO) 61.5 % (50-80); RED BLOOD COUNT 3.02 10^6/uL (4.20-5.40)
--- NOTE | 2018-04-21 07:45 | CRNA.PROGR ---
Anesthesia Note - Progress Notes Anesthesia Progress Note: She is sitting up in a chair, eating breakfast, visiting with a friend at time of visit. She is AAO and VSS. Discussed her anesthetic course and she has no questions or concerns regarding her anesthetic care at this time. CBC and BMP 04/20/18 04:30 04/20/18 04:30 Vital Signs (24 hrs) 04/20/18 08:29 04/20/18 11:55 04/20/18 16:17 Temperature 97.9 F 97.7 F 98.2 F Pulse Rate [Pulse Oximeter] 53 L 54 L 64 Respiratory Rate 16 16 12 Blood Pressure [Left Arm] 89/43 94/52 Blood Pressure [Right Arm] 101/48 Pulse Ox 97 96 95 04/20/18 20:33 04/21/18 01:00 04/21/18 03:33 Temperature 97 F 97.9 F Pulse Rate [Pulse Oximeter] 61 62 Respiratory Rate 16 16 Blood Pressure [Left Arm] 95/42 Blood Pressure [Right Arm] 94/37 Pulse Ox 92 93 93 04/21/18 05:00 04/21/18 07:28 Temperature 98.1 F Pulse Rate [Pulse Oximeter] 57 L 56 L Respiratory Rate 18 16 Blood Pressure [Left Arm] 90/47 Blood Pressure [Right Arm] Pulse Ox 95 91
[2018-04-21 07:56] LABS: PLATELET MORPHOLOGY COMMENT NORMAL MORPHOLOGY (NORM); RBC MORPHOLOGY COMMENT NORMAL MORPHOLOGY (NORM); WBC MORPHOLOGY COMMENT NORMAL MORPHOLOGY (NORM)
[2018-04-21 08:04] LABS: BLOOD UREA NITROGEN 14 mg/dL (7-22)
--- NOTE | 2018-04-21 08:20 | ORTHO.PROG ---
Last Taken Vital Signs: Vital Signs - Last Taken Temperature 98.1 F 04/21/18 07:28 Pulse Rate 56 L 04/21/18 07:28 Respiratory Rate 16 04/21/18 07:28 Blood Pressure 90/47 04/21/18 07:28 Pulse Ox 91 04/21/18 07:28 Subjective: Patient lying in bed. Has been doing well with morphine and Percocet. Having some pain but does not seem to be excessive for which she had done. Objective: Vital signs stable patient afebrile. Right hip incisions clean and dry. Previna dressing present on the upper incision. Hemoglobin and hematocrit 10 and 31. Assessment: Impression: Stable postop day 2 from fixation of right hip fracture. Plan: Plan: Continue mobilization, transfers, PT. Will likely require swing bed for a period of time.
[2018-04-21] MEDS ORDERED: CHOLESTYRAMINE/SUCROSE 4 GM PACKET PO ONE (09:34)
[2018-04-21] MEDS: BRIMONIDINE TARTRATE LEFT EYE SCH ×2 (09:36→20:22)
[2018-04-21] MEDS: METOPROLOL SUCCINATE 25 MG SR 24H TABLET PO SCH (09:36)
[2018-04-21] MEDS: TIMOLOL LEFT EYE SCH ×2 (09:36→20:22)
[2018-04-21] MEDS: CALCIUM CARBONATE 500 MG (TUMS) CHEWABLE TABLET PO SCH (09:36)
[2018-04-21] MEDS: POTASSIUM CHLORIDE 20 MEQ TAB PO SCH (09:37)
[2018-04-21] MEDS: CITALOPRAM 20 MG TABLET PO SCH (09:37)
[2018-04-21] MEDS: ENOXAPARIN SODIUM 40 MG/0.4 ML SYRINGE SUBCUT SCH (09:38)
--- NOTE | 2018-04-21 09:52 | PTI REPORT ---
Thank you for the referral of Gabbi Hays [place]. She was seen on 04/20/18 for an inpatient evaluation status post right hip ORIF. SUBJECTIVE: The patient is a 67-year-old female who fell at home a couple of days ago and sustained a fracture to her right hip. Dr. Ayon did an ORIF of the right hip on Saturday and the patient was seen in her room today. The patient states that she is very nauseous. She is also taking treatments for her cancer and states she was nauseous before falling at home. We are very familiar with this patient from other issues in the past. She has had several lumbar fusions and other orthopedic issues. PAST MEDICAL HISTORY: Past medical history can be found in the patient's medical record. OBJECTIVE FINDINGS: Objective findings: The patient was alert and oriented. The patient was very cooperative. Pain: The patient rates her pain as an 8 or 9/10 on the verbal analog scale (0=no pain, 10=worst pain) at times this morning. Transfers: With assist of one, the patient was able to transfer and understand her weight-bearing precautions. She did do a pivot transfer today that went fairly well, she just needs a little extra time due to her pain. ASSESSMENT: The patient is status post hip fracture with ORIF and is day one post op. We will progress into locomotion activities with touch weight-bearing in the days to come. 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 She may already be a candidate for swingbed when the time is appropriate. Problem List: Decreased ability to complete transfers Increased pain Short-Term Goals: To be met by discharge from inpatient: Patient will be able to transfer from bed to stand independently. Patient will be able to ambulate 100 feet with least restrictive assistive device, following weight-bearing precautions. Long-Term Goals: To be met following discharge from inpatient: Patient will be able to return home, independent and safe with all ADLs and transfers. TREATMENT PLAN: Patient will be seen B.I.D during the week and one time per day over the weekend as an inpatient to address the above goals and objectives. INITIAL TREATMENT: Treatment today consisted of the initial evaluation activities only. MTDD
[2018-04-21] MEDS: Filgrastim Inj 480 MCG/0.8 ML SYRINGE SUBCUT ONE ×2 (11:14→12:02)
--- NOTE | 2018-04-21 11:23 | PT.PROG ---
Progress Note Progress Note: S. Patient stated that she is still having some pain this morning, however agreed to get out of bed. O. Patient performed supine to sit transfer then sit to stand transfer and pivot transfer x 2. Patient was left in her chair with alarm and call light. A. Patient required mod assist x 2 for bed mobility however required mod assist x 1 for pivot transfers, she would continue to benefit from skilled therapy to increase strength and mobility at this time. P. Continue POC.
--- NOTE | 2018-04-21 12:49 | PT.PROG ---
Progress Note Progress Note: S. Patient stated that she is in more pain this afternoon, compared to this morning. O. Patient performed sit to stand transfer and pivot transfer to the bed where she was left with alarm and call light. A. Patient required mod- max assist x 2 for transfers and bed mobility. Patient would benefit from Swing bed to increase strength, mobility and safety at this time. P. Continue POC.
--- NOTE | 2018-04-21 14:21 | PDOC(PROG) ---
Date of Service: 04/21/18 Time of Service: 14:17 Interval History: Patient seen and examined earlier today. No complaints of chest pain. States that she had not had nausea and vomiting today but then subsequently threw up after my visit with her. Her caregiver, PALAK Metz, noted that the patient has had a lot of persistent nausea and vomiting lately. No shortness of breath. Pain is controlled with medications intermittently for the hip. Objective : Data - Labs CBC and BMP: 04/21/18 07:25 04/21/18 07:25 Additional Lab Results: 04/21/18 07:25 Calcium 9.0 Objective : Exam - General General Appearance: No Acute Distress, Cooperative Additional General Exam Details: Vital Signs - Last Taken Temperature 97.1 F 04/21/18 12:49 Pulse Rate 55 L 04/21/18 12:49 Respiratory Rate 14 04/21/18 12:49 Blood Pressure 84/39 04/21/18 12:49 Pulse Ox 94 04/21/18 12:49 - Eye Eye Exam: No Scleral Icterus - ENT ENT Exam: Mucous Membranes Moist - Neck Neck Exam: JVP is not Raised - Respiratory Respiratory Exam: Clear to Auscultation - Bilaterally, Breathing Non Labored - Cardiovascular Cardiovascular Exam: RRR, No Murmur, No Clicks, No Gallops, No Rubs, No JVD - GI/Abdominal GI/Abdominal Exam: Normal Bowel Sounds, Non Tender, Non Distended, Soft - Extremities Extremities Exam: No Clubbing Present, No Edema Present, No Cyanosis Present Additional Extremities Exam Details: Right hip incision is dressed. Dressing is clean, dry, intact - Neurological Neurological Exam: Alert, Oriented x 3, No Facial Droop, Speech Intact / Clear Assessment and Plan - Patient Problems (1) Benign hypertension Current Visit: Yes Status: Chronic (2) Hypothyroidism Current Visit: Yes Status: Chronic Qualifiers: Hypothyroidism type: acquired Qualified Code(s): E03.9 - Hypothyroidism, unspecified (3) Gastroesophageal reflux disease Current Visit: Yes Status: Chronic Code(s): K21.9 - Gastro-esophageal reflux disease without esophagitis Qualifiers: Esophagitis presence: with esophagitis Qualified Code(s): K21.0 - Gastro- esophageal reflux disease with esophagitis (4) Intertrochanteric fracture of right hip Current Visit: Yes Status: Acute Code(s): S72.141A - Displaced intertrochanteric fracture of right femur, initial encounter for closed fracture Qualifiers: Encounter type: initial encounter Fracture type: closed Fracture alignment: nondisplaced Qualified Code(s): S72.144A - Nondisplaced intertrochanteric fracture of right femur, initial encounter for closed fracture (5) Pancytopenia Current Visit: Yes Status: Acute Code(s): D61.818 - Other pancytopenia - Assessment / Plan Additional Assessment/Plan Details: Patient is been getting radiation therapy for her colon cancer. I'm not sure if this is the cause of her pancytopenia or not but I think given her state of active colon cancer therapy, we should go ahead and give a dose of Neupogen. Neutropenic precautions. Patient is going to need a lot of PT and OT, and I think she should go to the swing bed and she is willing to do that. I am told by disease case manager rn that patient can go to swing bed tomorrow. Labs in a.m. Get a CT scan to look at his nausea and vomiting of the abdomen. She is on antiemetics and proton pump inhibitor.
--- NOTE | 2018-04-21 16:17 | DI ---
CT Abdomen/Pelvis W Contrast,04/21/2018 2:45 PM: Clinical History: Nausea, vomiting and colon cancer Previous Exam: 09/10/17 Findings: Multiple helically acquired CT images are obtained through the abdomen and pelvis following the intra venous administration of 75 cc of Isovue 300. Patient is status post right total hip arthroplasty. There are multiple fluid-filled loops of small b owel. There is subsegmental atelectasis in the lung bases. The liver, spleen, adrenals and kidneys are unre markable except for some fatty infiltration of liver. There are multiple fluid-filled loops of bowel which are prominent, but there is no visible transition point. A few large bowel loops are noted whic h are within normal limits. There is a simple cyst in the inferior pole left kidney as well as a exophytic cyst within the superi or pole of the left kidney. Postsurgical changes are seen within the upper abdomen. The urinary bladder is unremarkable. Patient is status post vertebroplasty at multiple levels and there is transpedicular screw and plate fixation of L4-S1. Impression: Multiple fluid-filled loops of small bowel without a definite transition point identified. This is mo st consistent with a partial small bowel obstruction versus ileus. Stable postsurgical changes of the upper abdomen.
[2018-04-21] MEDS: Diphenoxylate/Atropine 2.5/0.025 mg Tab PO PRN (19:03)
[2018-04-21] MEDS: EYE LEFT EYE SCH (20:21)
[2018-04-21] MEDS: LATANOPROST 0.005% LEFT EYE SCH (20:21)
[2018-04-21] MEDS: ATORVASTATIN 20 MG TABLET PO SCH (20:23)
[2018-04-22] MEDS: oxyCODONE/APAP 7.5/325 Tab 1 TAB TAB PO PRN ×5 (04:27→20:40)
[2018-04-22] MEDS: LEVOTHYROXINE 112 MCG TABLET PO SCH (04:30)
[2018-04-22 04:43] LABS: Hematocrit [HCT] 31.7 % (37.0-47.0); Hemoglobin [HGB] 10.3 g/dL (12.0-16.0); MEAN CORPUSCULAR HEMOGLOBIN 33.4 PG (27-31); MEAN CORPUSCULAR HGB CONC 32.5 g/dL (33-37); MEAN CORPUSCULAR VOLUME 102.9 FL (81-99); MEAN PLATELET VOLUME 10.4 FL (7.4-12.2); RED BLOOD COUNT 3.08 10^6/uL (4.20-5.40)
[2018-04-22 05:05] LABS: BLOOD UREA NITROGEN 15 mg/dL (7-22); SERUM ALBUMIN 1.9 g/dL (3.5-4.8)
[2018-04-22 05:30] LABS: BAND NEUTROPHILS % 10 % (0-10); EOSINOPHILS % (MANUAL) 1 % (0-8); MONOCYTES % (MANUAL) 8 % (0-12); NEUTROPHILS % (MANUAL) 72 % (50-80); PLATELET MORPHOLOGY COMMENT NORMAL MORPHOLOGY (NORM); RBC MORPHOLOGY COMMENT NORMAL MORPHOLOGY (NORM); WBC MORPHOLOGY COMMENT NORMAL MORPHOLOGY (NORM)
[2018-04-22 05:31] LABS: BASOPHILS % (MANUAL) 0 % (0-1); METAMYELOCYTES % 0 %; MYELOCYTES % 0 %; PROMYELOCYTES % 0 %
[2018-04-22 05:40] LABS: LIPASE < 10 IU/L (23-300)
[2018-04-22] MEDS: PANTOPRAZOLE 40 MG TABLET PO SCH ×2 (07:00→16:34)
[2018-04-22] MEDS: Metoclopramide Inj 10 MG/2 ML VIAL IVP SCH ×3 (07:00→17:23)
[2018-04-22] MEDS ORDERED: Magnesium Sulfate 2gm (Premix) 2 GM/50 ML BAG IV ONE (08:55)
[2018-04-22] MEDS: BRIMONIDINE TARTRATE LEFT EYE SCH ×2 (09:09→20:40)
[2018-04-22] MEDS: CHOLESTYRAMINE/SUCROSE 4 GM PACKET PO SCH (09:09)
[2018-04-22] MEDS: ENOXAPARIN SODIUM 40 MG/0.4 ML SYRINGE SUBCUT SCH (09:09)
[2018-04-22] MEDS: TIMOLOL LEFT EYE SCH ×2 (09:09→20:40)
[2018-04-22] MEDS: POTASSIUM CHLORIDE 20 MEQ TAB PO SCH (09:10)
[2018-04-22] MEDS: CALCIUM CARBONATE 500 MG (TUMS) CHEWABLE TABLET PO SCH (09:10)
[2018-04-22] MEDS: CITALOPRAM 20 MG TABLET PO SCH (09:10)
[2018-04-22] MEDS: METOPROLOL SUCCINATE 25 MG SR 24H TABLET PO SCH (09:10)
[2018-04-22] MEDS: DOCUSATE 100 MG CAPSULE PO SCH (09:11)
--- NOTE | 2018-04-22 11:05 | PDOC(PROG) ---
Date of Service: 04/22/18 Time of Service: 10:58 Interval History: no chest pain, no shortness of breath. diarrhea persists. no fevers or chills. right hip pain worse with movement. denies any further vomiting. Objective : Data - Labs CBC and BMP: 04/22/18 04:35 04/22/18 04:35 Additional Lab Results: 04/22/18 04/22/18 04:35 04:35 Neutrophils % (Manual) 72 Band Neutrophils % 10 Calcium 9.5 Magnesium 1.6 Total Bilirubin 0.5 AST 21 ALT 33 Alkaline Phosphatase 121 Total Protein 4.5 L Albumin 1.9 L Globulin 2.6 Lipase < 10 L C. diff toxin negative. - Imaging CT Scan Status: Image Reviewed by Me (I looked at the CT scan of the abdomen--lots of fluid in the bowels. radiology felt this looked consistent with possible partial small bowel obstruction with lots of air/fluid levels.) Objective : Exam - General General Appearance: No Acute Distress, Cooperative Additional General Exam Details: Vital Signs - Last Taken Temperature 97.4 F 04/22/18 06:43 Pulse Rate 56 L 04/22/18 06:43 Respiratory Rate 16 04/22/18 07:00 Blood Pressure 95/44 04/22/18 06:43 Pulse Ox 96 04/22/18 06:43 - Eye Eye Exam: No Scleral Icterus - ENT ENT Exam: Mucous Membranes Moist - Neck Neck Exam: JVP is not Raised - Respiratory Respiratory Exam: Clear to Auscultation - Bilaterally, Breathing Non Labored - Cardiovascular Cardiovascular Exam: No Murmur, No Clicks, No Gallops, No Rubs, Bradycardia, No JVD - GI/Abdominal GI/Abdominal Exam: Normal Bowel Sounds, Non Tender, Non Distended, Soft - Extremities Extremities Exam: No Clubbing Present, No Edema Present, No Cyanosis Present Additional Extremities Exam Details: right hip incision is dressed. clean, dry, intact dressing. - Neurological Neurological Exam: Alert, Oriented x 3, No Facial Droop, Speech Intact / Clear Assessment and Plan - Patient Problems (1) Partial small bowel obstruction Current Visit: Yes Status: Acute Code(s): K56.600 - Partial intestinal obstruction, unspecified as to cause (2) Benign hypertension Current Visit: Yes Status: Chronic (3) Hypothyroidism Current Visit: Yes Status: Chronic Qualifiers: Hypothyroidism type: acquired Qualified Code(s): E03.9 - Hypothyroidism, unspecified (4) Gastroesophageal reflux disease Current Visit: Yes Status: Chronic Code(s): K21.9 - Gastro-esophageal reflux disease without esophagitis Qualifiers: Esophagitis presence: with esophagitis Qualified Code(s): K21.0 - Gastro- esophageal reflux disease with esophagitis (5) Intertrochanteric fracture of right hip Current Visit: Yes Status: Acute Code(s): S72.141A - Displaced in tertrochanteric fracture of right femur, initial encounter for closed fracture Qualifiers: Encounter type: initial encounter Fracture type: closed Fracture alignment: nondisplaced Qualified Code(s): S72.144A - Nondisplaced intertrochanteric fracture of right femur, initial encounter for closed fracture (6) Pancytopenia Current Visit: Yes Status: Resolved Code(s): D61.818 - Other pancytopenia - Assessment / Plan Additional Assessment/Plan Details: differential noted--likely related to neulasta patient tells me at home she has not been taking metoprolol due to low blood pressures. she has been persistently hypotensive here and bradycardic, so I will stop beta fausto check vitamin D, B12, folate level, and iron levels tomorrow. 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 swing bed when acute medical issues resolve DVT prophylaxis PT and OT.
--- NOTE | 2018-04-22 13:56 | ORTHO.PROG ---
Last Taken Vital Signs: Vital Signs - Last Taken Temperature 97.5 F 04/22/18 11:13 Pulse Rate 50 L 04/22/18 11:13 Respiratory Rate 18 04/22/18 11:13 Blood Pressure 89/44 04/22/18 11:13 Pulse Ox 98 04/22/18 11:13 Subjective: Patient sitting up in chair. Nursing reports that she is off of the morphine. Just taking Percocet. Pain seems to be pretty well controlled. Objective: Vital signs stable patient is afebrile. Right hip incisions are clean and dry. Gentle flexion-extension of the right hip did not seem to be excessively uncomfortable. Hemoglobin and hematocrit 10 and 31. Assessment: Impression: Doing well postop day 3 following right hip fracture. Patient may have a partial small bowel obstruction according to the hospitalist note. Plan: Plan: Is to continue transfers and touchdown weightbearing. The ga strointestinal issues are being followed by the hospitalist.
[2018-04-22] MEDS: Diphenoxylate/Atropine 2.5/0.025 mg Tab PO PRN (16:36)
[2018-04-22] MEDS: MORPHINE SULFATE 2 MG/1 ML IVP PRN (16:42)
[2018-04-22] MEDS: ATORVASTATIN 20 MG TABLET PO SCH (20:40)
[2018-04-22] MEDS: LATANOPROST 0.005% LEFT EYE SCH (20:40)
[2018-04-22] MEDS: EYE LEFT EYE SCH (20:40)
[2018-04-23] MEDS: Diphenoxylate/Atropine 2.5/0.025 mg Tab PO PRN (01:35)
[2018-04-23] MEDS: oxyCODONE/APAP 7.5/325 Tab 1 TAB TAB PO PRN ×2 (01:36→07:20)
[2018-04-23] MEDS: LEVOTHYROXINE 112 MCG TABLET PO SCH (04:41)
[2018-04-23] MEDS: Metoclopramide Inj 10 MG/2 ML VIAL IVP SCH ×3 (07:20→16:25)
[2018-04-23] MEDS: PANTOPRAZOLE 40 MG TABLET PO SCH ×2 (07:21→16:25)
--- NOTE | 2018-04-23 08:24 | DI ---
XR SMALL BOWEL SERIES,04/23/2018 7:00 AM: Clinical History: Small bowel obstruction Previous Exam: None at this facility. Findings: Knee 2 views of the abdomen and pelvis are obtained, and demonstrate a nonobstructive bowel gas patte rn. There is some prominence of the large bowel. There is transpedicular fusion of the lower lumbar spine. Multilevel vertebroplasty is noted. Patient is status post cholecystectomy. Impression: None specific bowel gas pattern with prominent air-filled loops of small bowel consistent with a smal l bowel obstruction.
--- NOTE | 2018-04-23 08:57 | ORTHO.PROG ---
Last Taken Vital Signs: Vital Signs - Last Taken Temperature 98.3 F 04/23/18 08:47 Pulse Rate 49 L 04/23/18 08:47 Respiratory Rate 18 04/23/18 08:47 Blood Pressure 94/53 04/23/18 08:47 Pulse Ox 93 04/23/18 08:47 Subjective: Patient just returned from a radiographic study to look for bowel obstruction. States her pain is not bad right now. She took 10 pain pills yesterday as well as 1 morphine shot Objective: Vital signs stable patient afebrile. Right hip incisions clean and dry. Gentle flexion-extension of the right hip did not seem to be extremely uncomfortable. Assessment: Impression: Fair progress postop day 4 after right hip fixation Plan: Plan: Is to continue PT. We will await the studies ordered by Dr. Gonzalez.
--- NOTE | 2018-04-23 10:48 | OTI REPORT ---
Thank you for the referral of Gabbi Bryson. She was seen on 04/21/18 for an occupational therapy inpatient evaluation status post right hip ORIF. SUBJECTIVE: The patient is a 67-year-old female who is being seen secondary to a right hip fracture. The patient was trying to dress self and fell against her dryer in her laundry room and broke her right hip. The patient reports that her pain is a 7/10 on the verbal analog scale (0=no pain, 10=worst pain) today. The patient lives at home with her . Her has 24-hour care and the patient states that recently she has had a caregiver caring for her as well. The patient lives in a home that is one level. She did have a walk-in shower installed recently for her and her . The patient has a higher toilet seat. Typically she states she does not have trouble getting in and out of bed or out of her chair. PAST MEDICAL HISTORY: Past medical history can be found in the patient's medical record. OBJECTIVE FINDINGS: General observations: The patient was sitting in chair upon the therapist's arrival. The patient was educated in her hip precautions. Range of motion: The patient has upper extremity range of motion that is within functional limits. Strength: Strength in bilateral upper extremities is 3+/5 for triceps, 4/5 for biceps, 4/5 for flexion/extension. Activities of daily living: The patient was issued a dynamic etching processor, sock aide, bath sponge, and long handled shoe horn. Transfers: The patient requires max assist x2 for stand pivot transfers. Bed mobility: The patient required max assist x2 to transfer into bed. Her pain increased with the transfer. The patient does have a trapeze bar. She was not able to scoot up to the top of the bed in a sitting position. ASSESSMENT: The patient's goal is to get back home. She will have some care at home; however, she will need to ambulate several feet in order to get to the bathroom, the living room, and her bedroom. It is highly recommended that the patient go swingbed to continue with rehab and eventually get on home health services. At this point she is needing a lot of assistance for all of her ADLs and functional transfers. Problem List: Decreased ability to complete ADLs Increased pain Decreased upper extremity strength Short-Term Goals: To be met by discharge from inpatient: Patient will be able to dress self with use of adaptive equipment independently. Patient will increase upper extremity strength to 4+/5. Patient will be able to stand at sink x3 minutes to complete hygiene activities. Patient will improve overall activity tolerance by being able to tolerate 15 minutes of activity without shortness of breath. Long-Term Goals: To be met following discharge from inpatient: Patient will be able to return home with caregiver to assist with higher level ADLs. TREATMENT PLAN: Patient will be seen B.I.D during the week and one time per day over the weekend as an inpatient to address the above goals and objectives. INITIAL TREATMENT: Treatment today consisted of the initial evaluation followed by the patient completing a chair to bed transfer with max assist x2. The patient was educated in adaptive devices; however, the patient was in too much pain to attempt these. The patient was max assist x2 for bed mobility. We will continue to work on more functional tasks as the patient's pain levels reduce. CLARISSE
--- NOTE | 2018-04-23 11:24 | PT AM DAY ---
Diagnosis : Right Hip ORIF AM - Physical Therapy S: The patient was in a little better spirits this morning. O: The patient was able to ambulate approximately half a dozen steps today with touch weight-bearing. She performed theraband resisted strengthening for upper and lower extremities. A: The patient made some improvement in forward mobility today. We will see if we can get the patient out of her room if they will allow us too. She currently is under isolation precautions due to her chemo and radiation therapy. We will ask for advice in that category. P: Continue seeing patient BID during the week and one time per day over the weekend for transfers, ambulation, and range of motion/strengthening exercises. MTDD
[2018-04-23] MEDS ORDERED: MORPHINE SULFATE 2 MG/1 ML IVP PRN (12:09)
--- NOTE | 2018-04-23 12:14 | PDOC(PROG) ---
Date of Service: 04/23/18 Time of Service: 12:09 Interval History: No completes of chest pain or shortness of breath. Has abdominal pain but states it's chronic. Has had some nausea but no vomiting. Had bowel movement today. Bowel tones noted. Small bowel series looks consistent with small bowel obstruction with no contrast into the colon on my view. Complaining of right calf pain Objective : Data - Labs CBC and BMP: 04/22/18 04:35 04/22/18 04:35 Objective : Exam - General General Appearance: No Acute Distress, Cooperative Additional General Exam Details: Vital Signs - Last Taken Temperature 98.3 F 04/23/18 08:47 Pulse Rate 49 L 04/23/18 08:47 Respiratory Rate 18 04/23/18 08:47 Blood Pressure 94/53 04/23/18 08:47 Pulse Ox 93 04/23/18 08:47 - Eye Eye Exam: No Scleral Icterus - ENT ENT Exam: Mucous Membranes Moist - Neck Neck Exam: JVP is not Raised - Respiratory Respiratory Exam: Clear to Auscultation - Bilaterally, Breathing Non Labored - Cardiovascular Cardiovascular Exam: No Murmur, No Clicks, No Gallops, No Rubs, Bradycardia, No JVD - GI/Abdominal GI/Abdominal Exam: Non Distended, Soft, Hypoactive Bowel Sounds - Extremities Extremities Exam: No Clubbing Present, No Edema Present, No Cyanosis Present, Calf Tenderness - Neurological Neurological Exam: Alert, Oriented x 3, No Facial Droop, Speech Intact / Clear, Moves All Extremities Equally Assessment and Plan - Patient Problems (1) Partial small bowel obstruction Current Visit: Yes Status: Acute Code(s): K56.600 - Partial intestinal obstruction, unspecified as to cause (2) Benign hypertension Current Visit: Yes Status: Chronic (3) Hypothyroidism Current Visit: Yes Status: Chronic Qualifiers: Hypothyroidism type: acquired Qualified Code(s): E03.9 - Hypothyroidism, unspecified (4) Gastroesophageal reflux disease Current Visit: Yes Status: Chronic Code(s): K21.9 - Gastro-esophageal reflux disease without esophagitis Qualifiers: Esophagitis presence: with esophagitis Qualified Code(s): K21.0 - Gastro-esophageal reflux disease with esophagitis (5) Intertrochanteric fracture of right hip Current Visit: Yes Status: Acute Code(s): S72.141A - Displaced intertrochanteric fracture of right femur, initial encounter for closed fracture Qualifiers: Encounter type: initial encounter Fracture type: closed Fracture alignment: nondisplaced Qualified Code(s): S72.144A - Nondisplaced intertrochanteric fracture of right femur, initial encounter for closed fracture (6) Pancytopenia Current Visit: Yes Status: Resolved Code(s): D61.818 - Other pancytopenia - Assessment / Plan Additional Assessment/Plan Details: Given her current circumstances, I spoke with Dr. Myers who will consult on the patient tomorrow. Our plan for today will be to do clear liquids, IV fluids, electrolyte replacement as necessary, check labs in a.m., and repeat a KUB tomorrow. At midnight I'll change patient nothing by mouth in case we need to proceed with any surgical intervention for what looks like a partial small bowel obstruction. Increase morphine for pain management for the hip An ultrasound will be ordered to look for DVT in the lower extremities due to calf pain. Patient does state she is hungry and she would like to eat.
[2018-04-23] MEDS ORDERED: MORPHINE SULFATE 4 MG/1 ML IVP PRN (12:30)
[2018-04-23] MEDS: Prochlorperazine Tab 10 MG TAB PO PRN (13:05)
[2018-04-23] MEDS: D5-1/2NS + 20mEq KCL 1,000 ML PRIMARY IV SCH ×2 (13:05→20:08)
[2018-04-23] MEDS: BRIMONIDINE TARTRATE LEFT EYE SCH ×2 (13:06→20:08)
[2018-04-23] MEDS: TIMOLOL LEFT EYE SCH ×2 (13:06→20:08)
[2018-04-23] MEDS: CHOLESTYRAMINE/SUCROSE 4 GM PACKET PO SCH (14:15)
[2018-04-23] MEDS: ENOXAPARIN SODIUM 40 MG/0.4 ML SYRINGE SUBCUT SCH (14:15)
[2018-04-23] MEDS: CALCIUM CARBONATE 500 MG (TUMS) CHEWABLE TABLET PO SCH (14:16)
[2018-04-23] MEDS: CHOLECALCIFEROL 1000 IU TABLET PO SCH (14:16)
[2018-04-23] MEDS: POTASSIUM CHLORIDE 20 MEQ TAB PO SCH (14:16)
[2018-04-23] MEDS: CITALOPRAM 20 MG TABLET PO SCH (14:16)
[2018-04-23] MEDS: HYDROmorphone Tab 4 MG TAB PO PRN ×2 (14:16→20:08)
--- NOTE | 2018-04-23 16:41 | OT.PROG ---
Progress Note Progress Note: S: pt stated that she needed to use the bed side commode. O: tx consisted of functional transfer from EOB to bedside commode with use of walker and MOD A x2 for standing. pt completed toileting task independently and was MAX A for toilet hygiene. pt was left with PT for continued therapy. A: pt is improving in overall functional abilities and ADL performance. pts pain is her biggest hindrance at this point in completing more therapy. P: continue POC
--- NOTE | 2018-04-23 16:47 | PT.PROG ---
Progress Note Progress Note: S. Patient stated that she is very tired this afternoon after having tests all morning. O. Patient performed supine to sit transfer and sit to stand transfer then pivot transfer to the chair. Patient was left in chair with alarm and call light. A. Patient tolerated transfers fair, she required max assist x 2 with bed mobility and mod assist x 2 with sit to stand and pivot transfers. Patient would continue to benefit from skilled therapy to increase strength, mobility and endurance at this time. P. Continue POC.
--- NOTE | 2018-04-23 16:59 | DI ---
US Veins, ENIO/CHARLA Catalan,04/23/2018 3:27 PM: Clinical History: Calf pain Previous Exam: None at this facility. Findings: Multiple grayscale and color Doppler sonographic images are obtained of the veins of both lower extre mities, and demonstrate complete coaptation upon graded compression throughout. There is no evidence of thrombus. There is normal respiratory variation and augmentation. Impression: No evidence of deep venous thrombosis.
[2018-04-23] MEDS: EYE LEFT EYE SCH (20:08)
[2018-04-23] MEDS: LATANOPROST 0.005% LEFT EYE SCH (20:08)
[2018-04-23] MEDS: ATORVASTATIN 20 MG TABLET PO SCH (20:08)
[2018-04-24] MEDS ORDERED: GLUCAGON EMERGENCY KIT 1 MG KIT IVP ONE (00:36)
[2018-04-24] MEDS ORDERED: Sodium Chloride 0.9% 1,000 ML PRIMARY IV ONE (00:37)
[2018-04-24] MEDS: LEVOTHYROXINE 112 MCG TABLET PO SCH (04:52)
[2018-04-24] MEDS: D5-1/2NS + 20mEq KCL 1,000 ML PRIMARY IV SCH (04:54)
[2018-04-24 06:12] LABS: Hemoglobin [HGB] 9.8 g/dL (12.0-16.0); MEAN CORPUSCULAR HEMOGLOBIN 33.9 PG (27-31); MEAN CORPUSCULAR HGB CONC 32.7 g/dL (33-37); MEAN CORPUSCULAR VOLUME 103.8 FL (81-99); MEAN PLATELET VOLUME 10.6 FL (7.4-12.2); RED BLOOD COUNT 2.89 10^6/uL (4.20-5.40)
[2018-04-24 06:21] LABS: BLOOD UREA NITROGEN 17 mg/dL (7-22); SERUM ALBUMIN 1.7 g/dL (3.5-4.8)
[2018-04-24 06:43] LABS: BAND NEUTROPHILS % 6 % (0-10); EOSINOPHILS % (MANUAL) 3 % (0-8); MONOCYTES % (MANUAL) 3 % (0-12); NEUTROPHILS % (MANUAL) 63 % (50-80)
[2018-04-24 06:44] LABS: BASOPHILS % (MANUAL) 0 % (0-1); METAMYELOCYTES % 0 %; PLATELET MORPHOLOGY COMMENT NORMAL MORPHOLOGY (NORM); RBC MORPHOLOGY COMMENT NORMAL MORPHOLOGY (NORM); WBC MORPHOLOGY COMMENT NORMAL MORPHOLOGY (NORM)
[2018-04-24] MEDS: PANTOPRAZOLE 40 MG TABLET PO SCH (08:02)
[2018-04-24] MEDS: Metoclopramide Inj 10 MG/2 ML VIAL IVP SCH ×2 (08:02→13:39)
--- NOTE | 2018-04-24 08:49 | DI ---
XR ABDOMEN (KUB) FLAT 1VIEW,04/24/2018 7:00 AM: Clinical History: Small bowel follow-through. Previous Exam: 04/23/18 Findings: Views of the abdomen and pelvis are obtained, and demonstrate contrast within the left colon and sigm oid colon. Postsurgical changes are seen consistent with transpedicular fixation of the lumbar spine. There is f aint contrast noted within the urinary bladder. Impression: There has been continued passage of contrast through the large and small bowel with only a small amou nt of residual contrast in the distal colon.
[2018-04-24] MEDS: CHOLESTYRAMINE/SUCROSE 4 GM PACKET PO SCH (09:32)
[2018-04-24] MEDS: ENOXAPARIN SODIUM 40 MG/0.4 ML SYRINGE SUBCUT SCH (09:32)
[2018-04-24] MEDS: CITALOPRAM 20 MG TABLET PO SCH (09:33)
[2018-04-24] MEDS: HYDROmorphone Tab 4 MG TAB PO PRN (09:33)
[2018-04-24] MEDS: POTASSIUM CHLORIDE 20 MEQ TAB PO SCH (09:33)
[2018-04-24] MEDS: CALCIUM CARBONATE 500 MG (TUMS) CHEWABLE TABLET PO SCH (09:33)
[2018-04-24] MEDS: CHOLECALCIFEROL 1000 IU TABLET PO SCH (09:33)
[2018-04-24] MEDS: TIMOLOL LEFT EYE SCH (09:43)
[2018-04-24] MEDS: BRIMONIDINE TARTRATE LEFT EYE SCH (09:43)
--- NOTE | 2018-04-24 11:21 | PT.PROG ---
Progress Note Progress Note: S. Patient stated that she is tired this morning. O. Patient performed sit to stand transfer x 3 and pivot transfer x 2, then performed seated exercises in the form of; quad sets, ankle pumps, glute squeezes all x 20 bilaterally. Patient was left in her chair with alarm and call light. A. Patient tolerated exercises fair, however continues to be weak this morning and was very fatigued after having a shower and would continue to benefit from skilled therapy to increase strength, mobility endurance and safety at this time. P. Continue POC.
--- NOTE | 2018-04-24 13:52 | PT.PROG ---
Progress Note Progress Note: S. Patient stated that she is feeling a little better this afternoon. O. Patient performed sit to stand then ambulated 5 feet and sat back in the chair where she performed seated long arc quads, heel toe raises, hip abduction/adduction, glute squeezes all x 10 bilaterally. Patient was left in chair with alarm and call light. A. patient tolerated exercise well, she continues to require mod assist x 2 with transfers and mod assist x1 with ambulation, she would continue to benefit from skilled therapy to increase strength, mobility, and endurance at this time. P. Continue POC.
--- NOTE | 2018-04-24 13:53 | OT.PROG ---
Progress Note Progress Note: Occupational Therapy: S: pt stated that she was doing okay but tired from the multiple testings she completed yesterday and agreed to complete therapy services this afternoon. O: afternoon treatment session consisted of seated UE yellow RTB exercises in all planes of motion x15 each. pt needed x2 rest breaks during exercises. pt was left with PT for continued therapy services. A: pt is improving on UE strength and independence at this time. pts main hindrance is her pain levels while transferring or walking. P: continue POC
--- NOTE | 2018-04-24 14:27 | DCSUMMARY ---
Hospitalization Summary Admit Date: 04/18/2018 Discharge Date: 04/24/18 Primary Diagnosis:: right hip fracture status post ORIF Secondary Diagnosis:: Colon cancer Hospital Course: This very pleasant 59-year-old female who has known colon cancer, history of hypertension, depression, amongst other medical issues, who presented here after a fall with a right hip fracture. She had open reduction internal fixation with pinning via Dr. Ayon. See his procedure note for details of the procedure. Postoperatively, the patient was maintained for DVT prophylaxis on Lovenox. Patient participated in PT and OT and still has several canes to make before going home. She is improving slowly and gradually and we plan to have her go to this event. Terms of her hypertension, I found that the patient is actually not on her beta fausto at home. This was related to low blood pressures at home. She had some hypertension here. We stopped the beta fausto and at various times tried fluid bolus therapy along with a dose of glucagon. I'm getting an a.m. cortisol tomorrow to look for potential adrenal insufficiency. At this time, the patient does not symptomatic with dizziness, lightheadedness or fatigue. Her pain was controlled with by mouth medications. We have her on by mouth Dilaudid at this time. There is some concern that patient might have a bowel instruction. We ended up confirming with Gastrografin small bowel follow-through that the contrast went through the small intestine and into the colon. The patient's diet was advanced. Her nausea and vomiting seemed to resolve. The patient had problems with pancytopenia during the hospital stay. I gave her a dose of Neulasta. She is not on chemotherapy at this time, but did do chemotherapy earlier in the course of her therapy for her colon cancer. She is on radiation which will be on hold through her rehabilitation process. I did update Ruth Ann, the patient's caregiver, on condition and the fact that we will be discharging the patient to the swing bed. Today, no completes of chest pain, shortness breath, nausea or vomiting. Her abdominal pain is controlled. Her hip pain is controlled with Dilaudid. She is willing to do swing bed therapy. Assessment and Plan: 1. As per discharge assessments noted 2. Disposition: Patient is discharged to swing bed 3. Condition on discharge, stable and improved. 4. Diet: regular diet 5. Activities: Patient will continue PT and OT 6. Follow-Up: 1. Hospital service will continue to service primary physician service 2. 7. Medications at the Time of Discharge: Active Medications Generic Name Dose Route Start Last Admin Trade Name Freq PRN Reason Stop Dose Admin Acetaminophen 650 mg 04/19/18 11:09 Tylenol PO Q6H PRN Pain or Fever Atorvastatin Calcium 20 mg 04/19/18 21:00 04/23/18 20:08 Lipitor PO 20 mg BEDTIME ESTEFANI Administration Calcium Carbonate 1 - 2 tab 04/19/18 11:09 Tums PO Q6H PRN Heartburn Calcium Carbonate 1 tab 04/20/18 09:00 04/24/18 09:33 Tums PO 1 tab DAILY ESTEFANI Administration Cholecalciferol 2,000 iu 04/23/18 09:00 04/24/18 09:33 Vitamin D3 PO 2,000 iu DAILY ESTEFANI Administration Cholestyramine Resin 4 gm 04/22/18 09:00 04/24/18 09:32 Questran Packet PO 4 gm DAILY ESTEFANI Administration Citalopram Hydrobromide 20 mg 04/20/18 09:00 04/24/18 09:33 Celexa PO 20 mg DAILY ESTEFANI Administration Diphenoxylate HCl/Atropine 1 tab 04/19/18 11:09 04/23/18 01:35 Lomotil 2.5/0.025 Mg PO 1 tab Q6H PRN Administration Diarrhea Docusate Sodium 100 mg 04/19/18 11:09 Colace PO BID PRN Constipation Enoxaparin Sodium 40 mg 04/20/18 09:30 04/24/18 09:32 Lovenox Inj SUBCUT 40 mg DAILY ESTEFANI Administration Heparin Sodium (Porcine) 500 unit 04/19/18 11:09 04/22/18 11:46 Heparin Lock Inj (For Central Line) IVP 500 unit BID PRN Administration Flush Hydromorphone HCl 4 mg 04/23/18 12:37 04/24/18 09:33 Dilaudid Tab PO 4 mg Q4H PRN Administration Pain Sodium Chloride 25 mls @ 200 mls/hr 04/19/18 11:09 04/22/18 09:26 Normal Saline 0.9% IV 200 mls/hr .Post Infusion PRN Administration No Primary IV for Flush ONLY Potassium Chloride/Dextrose/Sod Cl 1,000 mls @ 125 mls/hr 04/23/18 12:15 04/24/18 04:54 Pot Chl 20meq + D5-1/2ns PRIMARY IV 125 mls/hr .Q8H ESTEFANI Administration Levothyroxine Sodium 112 mcg 04/20/18 05:30 04/24/18 04:52 Synthroid PO 112 mcg DAILY@0530 ESTEFANI Administration Lidocaine HCl 0.5 ml 04/19/18 11:09 Lidocaine Buffered Inj SUBD ONCE PRN IV Starts Metoclopramide HCl 10 mg 04/22/18 07:00 04/24/18 13:39 Reglan Inj IVP 10 mg TID MEALS ESTEFANI Administration Morphine Sulfate 4 mg 04/23/18 12:30 Morphine Inj IVP Q2H PRN Pain Nf--Brimonidine 1 drp 04/20/18 10:15 04/24/18 09:43 Tartrate/Timolol [ LEFT EYE 1 drp Combigan 0.2%-0.5% BID ESTEFANI Administration Eye Drops] Nf--Latanoprost [ 1 drp 04/20/18 21:00 04/23/18 20:08 Lumigan] 0.005% Eye LEFT EYE 1 drp Drops BEDTIME ESTEFANI Administration Ondansetron HCl 4 mg 04/19/18 11:09 04/20/18 11:20 Zofran Inj IVP 4 mg Q4H PRN Administration NAUSEA / VOMITING Pantoprazole Sodium 40 mg 04/19/18 16:30 04/24/18 08:02 Protonix PO 40 mg AC BK DIN ESTEFANI Administration Potassium Chloride 20 meq 04/20/18 09:00 04/24/18 09:33 Klor-Con PO 20 meq DAILY ESTEFANI Administration Prochlorperazine Maleate 10 mg 04/19/18 11:09 04/23/18 13:05 Compazine PO 10 mg Q8H PRN Administration NAUSEA 8. Time, care, counseling and coordination of care for this discharge is greater than 30 minutes. Exam - Vitals Vital Signs: Vital Signs Temperature 97.1 F Temperature Source Temporal Artery Scan Pulse Rate [Apical] 68 Pulse Rate [Pulse Oximeter] 48 Pulse Rate 60 Respiratory Rate 20 Blood Pressure [Left Arm] 79/42 Blood Pressure [Right Arm] 88/42 Blood Pressure 115/66 Pulse Ox 97 Oxygen Flow Rate 2.5 Oxygen Delivery Method Nasal Cannula Height 5 ft 3 in Weight 168 lb 6.4 oz - General General Appearance: No Acute Distress, Cooperative - Head Head Exam: Normal Inspection, Normocephalic, Atraumatic - Eye Eye Exam: POSITIVE: No Scleral Icterus - ENT ENT Exam: POSITIVE: Mucous Membranes Moist - Respiratory Respiratory Exam: POSITIVE: Clear to Auscultation - Bilaterally, Breathing Non Labored - Cardiovascular Cardiovascular Exam: POSITIVE: No Murmur, No Clicks, No Gallops, No Rubs, Bradycardia, No JVD - GI/Abdominal GI/Abdominal Exam: POSITIVE: Normal Bowel Sounds, Non Tender, Non Distended, Soft - Extremities Extremities Exam: POSITIVE: No Clubbing Present, No Edema Present, No Cyanosis Present - Neurological Neurological Exam: POSITIVE: Alert, Oriented x 3, No Facial Droop, Speech Intact / Clear, Moves All Extremities Equally Additional Neurological Exam Details: Right hip incision is dressed, dressing is clean, dry and intact. - Psychiatric Psychiatric Exam: POSITIVE: Normal Affect, Normal Mood Data Peritnent Studies: 04/23/18 04/23/18 04/23/18 04:30 04:30 04:30 WBC Hgb Hct Plt Count Neutrophils % (Manual) Band Neutrophils % Sodium Potassium Chloride Carbon Dioxide Anion Gap BUN Creatinine Estimated GFR BUN/Creatinine Ratio Glucose Calculated Osmolality Calcium Magnesium Iron 42 TIBC 173 L % Saturation 24.28 Total Bilirubin AST ALT Alkaline Phosphatase Total Protein Albumin Globulin Albumin/Globulin Ratio Vitamin B12 709 Vitamin D 25-Hydroxy 26.1 L Serum Folate 3.82 04/24/18 04/24/18 04:50 04:50 WBC 2.98 L Hgb 9.8 L Hct 30.0 L Plt Count 116 L Neutrophils % (Manual) 63 Band Neutrophils % 6 Sodium 133 L Potassium 4.6 Chloride 105 Carbon Dioxide 26 Anion Gap 2 L BUN 17 Creatinine 0.4 L Estimated GFR > 60 BUN/Creatinine Ratio 42.50 H Glucose 101 Calculated Osmolality 277.0 Calcium 9.1 Magnesium 1.5 L Iron TIBC % Saturation Total Bilirubin 0.4 AST 18 ALT 29 Alkaline Phosphatase 108 Total Protein 3.9 L Albumin 1.7 L Globulin 2.2 L Albumin/Globulin Ratio 0.70 L Vitamin B12 Vitamin D 25-Hydroxy Serum Folate Procedures: [address] [facility] [place] [address] PH: DD: [phone] FAX: [phone] ~DIAGNOSTIC IMAGING REPORT~ Patient: Gabbi Bryson : 1950 Sex: F Age: 67 Exam Name: XR ABDOMEN (KUB) FLAT 1VIEW Exam Date: 04/24/18 Report # : [id number] CPT Code: 76458 EMR/MR #: [id number] Ordering: BARRY MCKEON Admiting: BHARGAV THOMPSON MD. Primary: Zofia Elena MS, PAEDIATRIC SURGEON Attending: BHARGAV THOMPSON MD. Signed XR ABDOMEN (KUB) FLAT 1VIEW,04/24/2018 7:00 AM: Clinical History: Small bowel follow-through. Previous Exam: 04/23/18 Findings: Views of the abdomen and pelvis are obtained, and demonstrate contrast within the left colon and sigmoid colon. Postsurgical changes are seen consistent with transpedicular fixation of the lumbar spine. There is faint contrast noted within the urinary bladder. Impression: There has been continued passage of contrast through the large and small bowel with only a small amount of residual contrast in the distal colon. Dictated By: 04/24/18 0841 JEFE VALERA MD. Signed By: 04/24/18 0849 JEFE VALERA MD. [address] [facility] [place] [address] PH: DD: [phone] FAX: [phone] ~DIAGNOSTIC IMAGING REPORT~ Patient: Gabbi Bryson : 1950 Sex: F Age: 67 Exam Name: XR HIP COMPLETE MIN 2VW U/L Exam Date: 04/19/18 Report # : [id number] CPT Code: 21611 EMR/MR #: [id number] Ordering: Yusuf Ayon Admiting: BHARGAV THOMPSON MD. Primary: Zofia Elena MS, PAEDIATRIC SURGEON Attending: BHARGAV THOMPSON MD. Signed RIGHT HIP, 04/19/2018 10:31 AM: Clinical History: Intertrochanteric fracture. Status post ORIF. Previous Exam: 04/18/2018. Hip View: AP and cross table lateral. Soft Tissues: Normal. Bony Pelvis: The visualized portions are intact. Femoral Head/Neck Junction: A short intramedullary lori has been inserted and this is transfixed with a distal threaded screw. 2 threaded screws transfix the base of the neck/intertrochanteric fracture. The fracture is anatomic alignment and position. Acetabulum: Intact Hip Joint Space: Normal joint space. Reading: Status post ORIF of a base of the neck/intertrochanteric fracture. Alignment and position are anatomic. Dictated By: 04/19/18 1157 PHI DURAN MD. Signed By: 04/19/18 1219 PHI DURAN MD. Patient Problems - Patient Problem List (1) Partial small bowel obstruction Current Visit: Yes Status: Acute Code(s): K56.600 - Partial intestinal obstruction, unspecified as to cause Category: Medical (2) Benign hypertension Current Visit: Yes Status: Chronic Category: Medical (3) Hypothyroidism Current Visit: Yes Status: Chronic Qualifiers: Hypothyroidism type: acquired Qualified Code(s): E03.9 - Hypothyroidism, unspecified Category: Medical (4) Gastroesophageal reflux disease Current Visit: Yes Status: Chronic Code(s): K21.9 - Gastro-esophageal reflux disease without esophagitis Qualifiers: Esophagitis presence: with esophagitis Qualified Code(s): K21.0 - Gastro- esophageal reflux disease with esophagitis Category: Medical (5) Intertrochanteric fracture of right hip Current Visit: Yes Status: Acute Code(s): S72.141A - Displaced intertrochanteric fracture of right femur, initial encounter for closed fracture Qualifiers: Encounter type: initial encounter Fracture type: closed Fracture alignment: nondisplaced Qualified Code(s): S72.144A - Nondisplaced intertroc hanteric fracture of right femur, initial encounter for closed fracture Category: Medical (6) Pancytopenia Current Visit: Yes Status: Acute Code(s): D61.818 - Other pancytopenia Category: Medical
--- NOTE | 2018-04-24 14:53 | ORTHO.PROG ---
Last Taken Vital Signs: Vital Signs - Last Taken Temperature 97.1 F 04/24/18 13:00 Pulse Rate 48 L 04/24/18 13:00 Respiratory Rate 20 04/24/18 13:00 Blood Pressure 79/42 04/24/18 13:00 Pulse Ox 97 04/24/18 13:00 Subjective: Patient just moved from chair to bed. Doing fairly well. Last pain medication was about 5-1/2 hours ago. She is taking Dilaudid for pain. Radiographic studies confirm the absence of small bowel obstruction. Objective: Vital signs stable patient afebrile. Right hip incisions clean and dry. Dressings were changed by myself. Thigh is supple. Hemoglobin and hematocrit stable. Assessment: Impression: Doing well postop day 5 from fixation of right intertrochanteric hip fracture. Examination doing well. Plan: Plan: Is that she will be placed on swing bed today. I will continue to follow her in the hospital.
[2018-04-25 17:53] VITALS: RESP 20
[2018-04-25 17:55] VITALS: BP 79/42; TEMP 97.1; O2SAT 97
== END 2018-04-24 14:30 | disposition swing bed (61) | DRG 536 ==
LOC: ER 11:40 → MED/SURG 15:13 → OPS 04-19 07:09 → MED/SURG 04-19 11:10
PROVIDERS: ADMIT Internal Medicine; ATTEND Internal Medicine

== ENCOUNTER 2018-05-07 12:35 | Inpatient (IN) ==
[2018-05-07] MEDS ORDERED: ONDANSETRON 4 MG/2 ML VIAL IVP PRN (14:59)
[2018-05-07] MEDS ORDERED: ACETAMINOPHEN 325 MG TABLET PO PRN (14:59)
[2018-05-07] MEDS ORDERED: LIDOCAINE W/ SODIUM BICARB 0.5 ML SYR SUBD PRN (14:59)
[2018-05-07] MEDS ORDERED: HEPARIN 500 UNIT/5 ML SYRINGE FOR CENTRAL LINE IVP PRN (15:04)
[2018-05-07] MEDS ORDERED: LIDOCAINE 2.5% /PRILOCAINE 2.5% 5 GM CREAM TOPICAL PRN (15:04)
[2018-05-07] MEDS ORDERED: Diphenoxylate/Atropine 2.5/0.025 mg Tab PO PRN (15:04)
[2018-05-07] MEDS ORDERED: Prochlorperazine Tab 10 MG TAB PO PRN (15:04)
[2018-05-07] MEDS ORDERED: CALCIUM CARBONATE 500 MG (TUMS) CHEWABLE TABLET PO PRN (15:04)
[2018-05-07] MEDS ORDERED: TPN - PHA to Dose IV PRN (15:12)
--- NOTE | 2018-05-07 15:18 | PDOC ---
HPI - History of Present Illness Date of Service: 05/07/18 Time of Service: 15:13 Chief Complaint: Urine infection, bruising, poor nutrition History of Present Illness: Very pleasant 67-year-old female who has colon cancer, coronary artery disease, obesity, chronic diarrhea, recent hip fracture status post ORIF, who is been on the swing bed since March 2018. 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 We have tried several interventions including cholestyramine, antidiarrheals, without a lot of help with the symptoms. The patient has not had any fevers but has had persistent abdominal pain for which she takes Dilaudid. She had an infectious workup done on the diarrhea that was negative. She remains on Protonix twice a day, and has had no blood in the stool. In terms of her urine infection complaints, she has greater than 100,000 colony- forming units of gram-negative rods on urinalysis yesterday. I started the patient on Rocephin today for urinary tract infection. She is being admitted with urinary tract infection present on inpatient admission. She does not show signs of pyelonephritis. Again, no fevers. Her white blood cell count has been low which I think may be residual effect from her chemotherapy and radiation therapy. The patient has had persistent bradycardia associated with hypoglycemia and the diarrhea as mentioned. We thought it might be due to adrenal insufficiency but her a.m. cortisol was normal. We tried fludrocortisone empirically and this did not seem to help symptoms. We have now started admitted September and she is on day #2 of that. She's been fatigued and tired, but does not have any chest pains or shortness of breath. She has a known history of coronary artery disease. She does report daily nausea and vomiting although she did not have any today which is good as she's had persistent nausea and vomiting as of recent days. That mainly affects her in the morning. We did a head CT scan that showed a fairly large nasal polyp evaluated by ear nose and throat here. They did not feel it was a metastatic lesion. Finally, the patient has had significantly poor nutrition. Her by mouth intake has been down. Her albumin level which was normal during her chemotherapy and I spoke to her oncologist about this, is now at 1.5. I think she is not making very good clotting proteins and has had some significant bruising along her right lower extremity and her posterior knee despite being only on aspirin because of her bleeding risk. She is agreeable to trying TPN along with some boost supplements or ensure supplements. We will get nutrition involved as well. Past Medical History Medical History: 1. Hypertension normally, but hypotensive as of recent and all antihypertensive agents discontinued. 2. Hypothyroidism. 3. History of obstructive sleep apnea. 4. Anxiety and depression. 5. Coronary artery disease by stress test. No heart catheterization or stents. 6. History of colon cancer status post right hemicolectomy and chemotherapy. Was undergoing adjuvant radiation therapy when she fell and fractured her right hip. Had 3 weeks more to go but that is being held indefinitely until the patient heals from these issues. 7. Hip fracture status post ORIF. 8. Symptomatic bradycardia accompanied with hypoglycemia Surgical History: 1. Cholecystectomy. 2. Gastric bypass. 3. Hysterectomy. 4. History of arthroscopic knee surgery. 5. Tonsillectomy. 6. History of vertebral fusion. 7. Right hemicolectomy for colon cancer. 8. Status post right hip ORIF Pertinent Family History: Father had emphysema Past Social History: . Does not have children. She does smoke a pack per day. No alcohol. No drugs. She has a caregiver who helps her with her health care needs and activities of daily living. Tobacco Use: Current Every Day Smoker In the Past 12 Months, Have Used or Abuse Any of the Following Substance: None Alcohol Use: None Medication / Allergies Home Medications: Home Medications Medication Instructions Recorded Confirmed Type Aspirin [Aspir 81] 81 mg PO DAILY tab 05/02/15 05/06/18 History atorvastatin 20 mg tablet 20 mg PO QD #90 tab 11/25/17 05/06/18 Rx bimatoprost 0.01 % eye drops 1 drp OP QPM 11/25/17 05/06/18 History brimonidine-timolol 0.2 %-0.5 % 2 drp OP QDAY ml 11/25/17 05/06/18 History eye drops citalopram 20 mg tablet 20 mg PO QD #90 tab 11/25/17 05/06/18 Rx levothyroxine 112 mcg tablet 112 mcg PO QD #90 tab 11/25/17 05/06/18 Rx lidocaine-prilocaine 2.5 %-2.5 % 1 applic TOPICAL ONCE PRN #5 g 11/25/17 05/06/18 Rx topical cream pantoprazole 40 mg tablet,delayed 40 mg PO BID #180 tab 11/25/17 05/06/18 Rx release prochlorperazine maleate 10 mg 10 mg PO Q8H PRN tab 11/25/17 05/06/18 History tablet potassium chloride ER 20 mEq 20 meq PO QDAY 01/08/18 05/06/18 History tablet,extended release diphenoxylate-atropine 2.5 1 tab PO Q6-8H PRN 04/14/18 05/06/18 History mg-0.025 mg tablet AcetaZOLAMIDE [Diamox] 250 mg PO QID tab 05/07/18 Rx Ascorbic Acid [Vitamin C] 500 mg PO DAILY tab 05/07/18 Rx Calcium Carbonate [Tums] 1 - 2 tab PO Q6H PRN tab.chew 05/07/18 Rx Folic Acid 1 mg PO DAILY tab 05/07/18 Rx HYDROmorphone Tab [Dilaudid Tab] 4 mg PO Q4H PRN tab 05/07/18 Rx Heparin Lock Inj [Heparin Lock Inj 500 unit IVP DAILY PRN syringe 05/07/18 Rx (for Central Line)] Midodrine HCl [Proamatine] 10 mg PO 0700,1100,1500 tab 05/07/18 Rx Multivitamin Tab [Thera Tab] 1 tab PO C MEG tab 05/07/18 Rx Vitamin E Cap 400 iu PO DAILY cap 05/07/18 Rx Allergies/Adverse Reactions: Allergies Allergy/AdvReac Type Severity Reaction Status Date / Time iodine Allergy Intermediate hives/itchi Verified 05/06/18 13:17 ng shellfish derived Allergy Intermediate RASH Verified 05/06/18 13:17 paper tape Allergy Mild BLISTER, Uncoded 05/06/18 13:17 PEELED SKIN Review of Systems - Respiratory Respiratory: REPORTS: Negative System Review - Cardiovascular Cardiovascular: REPORTS: Negative System Review - Gastrointestinal Gastrointestinal / Abdominal: REPORTS: Nausea, Vomiting, Diarrhea (Somewhat improved with only 2 diarrhea episodes today) - Genitourinary Genitourinary: REPORTS: Burning, Incontinence - Musculoskeletal Musculoskeletal: REPORTS: Other (Right lower extremity pain, particularly below the knee) Exam - General General Appearance: No Acute Distress, Cooperative - Head Head Exam: Normal Inspection, Normocephalic, Atraumatic - Eye Eye Exam: POSITIVE: No Scleral Icterus - ENT ENT Exam: POSITIVE: Mucous Membranes Dry Additonal ENT Exam Details: Tongue is somewhat beefy red. - Neck Neck Exam: Normal Inspection, No Tenderness, No Lymphadenopathy, No Thyromegaly, JVP is not Raised - Respiratory Respiratory Exam: POSITIVE: Breathing Non Labored, Coarse Breath Sounds (In the bases bilaterally) - Cardiovascular Cardiovascular Exam: POSITIVE: No Murmur, No Clicks, No Gallops, No Rubs, Bradycardia, No JVD - GI/Abdominal GI/Abdominal Exam: POSITIVE: Normal Bowel Sounds, Non Tender, Non Distended, Soft - Rectal Rectal Exam: POSITIVE: Deferred - External Exam: POSITIVE: Deferred Exam: POSITIVE: Deferred - Extremities Extremities Exam: POSITIVE: No Clubbing Present, No Cyanosis Present, +1 Edema (Right lower extremity. Ecchymosis on lateral and posterior aspect of right thigh and posterior behind the knee.) - Back Back Exam: POSITIVE: No CVA Tenderness - Neurological Neurological Exam: POSITIVE: Alert, Oriented x 3, No Facial Droop, Speech Intact / Clear, Moves All Extremities Equally - Psychiatric Psychiatric Exam: POSITIVE: Normal Affect, Normal Mood - Central Line Examination Central Line Present on Admission: Yes Central Line Type: Med-Port (Left upper chest, no erythema.) Central Line Site Observations: POSITIVE: Asymptomatic, Intact, Patent Results - Labs Additional Lab Results: 06/24/12 04/28/18 04/29/18 08:23 04:35 08:10 WBC Hgb RDW 12.5 Plt Count Neutrophils % (Manual) 83 H Band Neutrophils % 0 Lymphocytes % (Manual) 8 L Sodium Potassium Chloride Carbon Dioxide Anion Gap BUN Creatinine Estimated GFR BUN/Creatinine Ratio Glucose Calculated Osmolality Calcium Total Bilirubin Cortisol AM Sample 13 Urine Nitrate Urine Bacteria Ur Culture Indicated? 05/06/18 05/07/18 05/07/18 18:45 04:40 04:40 WBC 3.25 L Hgb 9.4 L RDW Plt Count 173 Neutrophils % (Manual) Band Neutrophils % Lymphocytes % (Manual) Sodium 136 Potassium 3.9 Chloride 112 Carbon Dioxide 20 L Anion Gap 4 L BUN 15 Creatinine 0.5 Estimated GFR > 60 BUN/Creatinine Ratio 30.00 H Glucose 70 L Calculated Osmolality 280.0 Calcium 8.9 Total Bilirubin 0.6 Cortisol AM Sample Urine Nitrate Positive A Urine Bacteria Many H Ur Culture Indicated? Culture set - EKG Data -: EKG Interpreted by Me (I am ordering an EKG) - Imaging Status: Image Pending (I will order an ultrasound to look for DVT in the right lower extremity) Assessment and Plan - Patient Problems (1) Urinary tract infection Status: Acute Code(s): N39.0 - Urinary tract infection, site not specified Qualifiers: Urinary tract infection type: acute cystitis Hematuria presence: without hematuria Qualified Code(s): N30.00 - Acute cystitis without hematuria (2) Severe protein-calorie malnutrition Status: Acute Code(s): E43 - Unspecified severe protein-calorie malnutrition (3) Bradycardia Status: Acute Code(s): R00.1 - Bradycardia, unspecified (4) Coronary artery disease Status: Chronic Code(s): I25.10 - Atherosclerotic heart disease of [place] coronary artery without angina pectoris Qualifiers: Coronary Disease-Associated Artery/Lesion type: [place] artery [place] vs. transplanted heart: [place] heart Associated angina: without angina Qualified Code(s): I25.10 - Atherosclerotic heart disease of [place] coronary artery without angina pectoris (5) Hypothyroidism Status: Chronic Qualifiers: Hypothyroidism type: acquired Qualified Code(s): E03.9 - Hypothyroidism, unspecified (6) Morbid obesity Status: Chronic (7) Intertrochanteric fracture of right hip Status: Acute Code(s): S72.141A - Displaced intertrochanteric fracture of right femur, initial encounter for closed fracture Qualifiers: Encounter type: subsequent encounter Fracture type: closed Fracture alignment: nondisplaced Fracture healing: with routine healing Qualified Code(s): S72.144D - Nondisplaced intertrochanteric fracture of right femur, subsequent encounter for closed fracture with routine healing - Assessment / Plan Additional Assessment/Plan Details: Readmit the patient to acute inpatient care. Rocephin, 2 g IV every 24 hours, first dose today for what appears to be a gram- negative lori urinary tract infection. Final ID and sensitivities pending. The patient has had some intermittent Howard catheterization placement, so I would consider this a complicated UTI and probably anticipate a 7 day course of anabolic stool. Start TPN for malnutrition and ensure and boost supplements. Patient does have a history of a gastric bypass and she has some malnutrition issues in terms of her vitamin insufficiencies. We will continue to replace those vitamins. For the bradycardia, we have gotten a cortisol level which was normal and the patient did not respond fludrocortisone. We are trialing Midrin. She has hypoglycemia. It is not clear if she would need a pacemaker or not. I like to give her another day of trying to Midrin to see if this helps. She has been h ypotensive in the setting as well. We'll check labs in a.m. Continue PT and OT for the hip fracture Start that tonight for chronic pain related to cancer Discussed with oncology. The patient is no longer on chemotherapy and that was stopped actually at the very first part of March. I discussed with surgery, and they agreed with the idea of doing TPN temporarily to see if we could boost nutritional status. Given the pain behind the right knee, check an ultrasound for DVT although I think it's really from bruising from lack of proteins and malnutrition related coagulopathy is my suspicion. Although she is high risk for DVT and PE at think her bleeding risk is equally high. Patient is DO NOT RESUSCITATE. Patient agreed with readmission. I really think of her nutrition does not improve or her bradycardia/hypotension/hypoglycemia issues do not improve, this bodes poorly for the patient overall in terms of prognosis.
[2018-05-07 17:54] LABS: BASOPHILS # (AUTO) 0.02 10*3/UL; BASOPHILS % (AUTO) 0.8 % (0-1); EOSINOPHILS % (AUTO) 4.2 % (0-8); Hematocrit [HCT] 34.5 % (37.0-47.0); Hemoglobin [HGB] 11.3 g/dL (12.0-16.0); LYMPHOCYTES # (AUTO) 0.57 10*3/uL; MEAN CORPUSCULAR HEMOGLOBIN 33.4 PG (27-31); MEAN CORPUSCULAR HGB CONC 32.8 g/dL (33-37); MEAN CORPUSCULAR VOLUME 102.1 FL (81-99); MEAN PLATELET VOLUME 9.7 FL (7.4-12.2); MONOCYTES # (AUTO) 0.28 10*3/UL (0.3-0.8); MONOCYTES % (AUTO) 11.8 % (5-15); NEUTROPHILS # (AUTO) 1.38 10*3/UL; NEUTROPHILS % (AUTO) 58.3 % (50-80); RED BLOOD COUNT 3.38 10^6/uL (4.20-5.40)
[2018-05-07 18:02] LABS: PLATELET MORPHOLOGY COMMENT NORMAL MORPHOLOGY (NORM); RBC MORPHOLOGY COMMENT NORMAL MORPHOLOGY (NORM); WBC MORPHOLOGY COMMENT NORMAL MORPHOLOGY (NORM)
--- NOTE | 2018-05-07 18:12 | DI ---
US Veins, UE/LE [employer] 05/07/2018 4:03 PM History: [facility] [place] DI ^right lower extremity pain, question DVT Comparison: 04/23/2018. Procedure: Right lower extremity Doppler ultrasound. Findings: There is normal flow, compressibility, and respiratory variation from the level of the comm on femoral vein to the popliteal vein on the right. There is normal augmentation of flow. Additionall y, the deep veins below the knee that could be imaged were evaluated without evidence of thrombosis, though sensitivity is much lower in the evaluation of vessels below the knee. Impression: No sonographic evidence of deep vein thrombosis.
--- NOTE | 2018-05-07 18:14 | EKG ---
[address] [place] [address] Measurements Intervals [place] Rate: 53 P: 63 MS: 171 QRS: 6 QRSD: 121 T: 0 QT: 438 QTc: 422 Interpretive Statements SINUS BRADYCARDIA POSSIBLE RIGHT VENTRICULAR CONDUCTION DELAY [RSR (QR) IN V1/V2] NONSPECIFIC T-WAVE ABNORMALITY Compared to ECG 04/18/2018 15:51:34 T-wave abnormality now present Electronically Signed On 05-08-18 09:31:30 [facility] [email or web address]] by Balta Anderson MD [email or web address]
[2018-05-07] MEDS: PANTOPRAZOLE 40 MG TABLET PO SCH (18:23)
[2018-05-07] MEDS: AcetaZOLAMIDE Tab 250 MG TABLET PO SCH ×2 (18:23→21:13)
[2018-05-07] MEDS: Fluconazole 200mg (Premix) 200 MG/100 ML BAG IV SCH (18:23)
[2018-05-07] MEDS: LYTES IV SCH ×2 (18:38)
[2018-05-07] MEDS: CALCIUM IV SCH ×2 (18:38)
[2018-05-07] MEDS: AA DEXT IV SCH ×2 (18:38)
[2018-05-07] MEDS: MULTIVITAMIN IV SCH ×2 (18:38)
[2018-05-07] MEDS ORDERED: Fat Emulsions Inj 20% 250 ML IV SCH (21:00)
[2018-05-07] MEDS ORDERED: fentaNYL 25 MCG/HR PATCH TRANSDERM SCH (21:00)
[2018-05-07] MEDS ORDERED: BIMATOPROST OP SCH (21:00)
[2018-05-07] MEDS: ATORVASTATIN 20 MG TABLET PO SCH (21:13)
[2018-05-07] MEDS: TIMOLOL LEFT EYE SCH (21:14)
[2018-05-07] MEDS: BRIMONIDINE TARTRATE LEFT EYE SCH (21:14)
[2018-05-07] MEDS: LATANOPROST 0.005% LEFT EYE SCH (21:14)
[2018-05-08] MEDS: LEVOTHYROXINE 112 MCG TABLET PO SCH (04:34)
[2018-05-08] MEDS: HYDROmorphone Tab 4 MG TAB PO PRN ×3 (04:47→20:47)
[2018-05-08 05:59] LABS: BASOPHILS # (AUTO) 0.01 10*3/UL; BASOPHILS % (AUTO) 0.5 % (0-1); EOSINOPHILS # (AUTO) 0.08 10*3/UL; EOSINOPHILS % (AUTO) 3.8 % (0-8); Hematocrit [HCT] 31.4 % (37.0-47.0); Hemoglobin [HGB] 10.1 g/dL (12.0-16.0); LYMPHOCYTES # (AUTO) 0.48 10*3/uL; MEAN CORPUSCULAR HGB CONC 32.2 g/dL (33-37); MEAN CORPUSCULAR VOLUME 102.6 FL (81-99); MEAN PLATELET VOLUME 9.7 FL (7.4-12.2); MONOCYTES % (AUTO) 14.4 % (5-15); NEUTROPHILS % (AUTO) 57.7 % (50-80); RED BLOOD COUNT 3.06 10^6/uL (4.20-5.40)
[2018-05-08 06:20] LABS: BLOOD UREA NITROGEN 13 mg/dL (7-22); SERUM ALBUMIN 1.8 g/dL (3.5-4.8)
[2018-05-08 06:32] LABS: PLATELET MORPHOLOGY COMMENT NORMAL MORPHOLOGY (NORM); RBC MORPHOLOGY COMMENT NORMAL MORPHOLOGY (NORM); WBC MORPHOLOGY COMMENT NORMAL MORPHOLOGY (NORM)
[2018-05-08] MEDS: PANTOPRAZOLE 40 MG TABLET PO SCH ×2 (07:02→17:09)
[2018-05-08] MEDS: MIDODRINE 10 MG PO SCH ×3 (07:02→14:56)
[2018-05-08] MEDS: BRIMONIDINE TARTRATE LEFT EYE SCH ×2 (09:25→20:34)
[2018-05-08] MEDS: TIMOLOL LEFT EYE SCH ×2 (09:25→20:34)
[2018-05-08] MEDS: FOLIC ACID 1 MG TABLET PO SCH (09:26)
[2018-05-08] MEDS: AcetaZOLAMIDE Tab 250 MG TABLET PO SCH ×4 (09:26→20:34)
[2018-05-08] MEDS: Vitamin E Cap 400 IU CAP PO SCH (09:26)
[2018-05-08] MEDS: CITALOPRAM 20 MG TABLET PO SCH (09:26)
[2018-05-08] MEDS: POTASSIUM CHLORIDE 20 MEQ TAB PO SCH (09:26)
[2018-05-08] MEDS: ASCORBIC ACID Chewable 500 MG TABLET PO SCH (09:26)
[2018-05-08] MEDS: ASPIRIN EC 81 MG TABLET PO SCH (09:26)
[2018-05-08] MEDS ORDERED: cefTRIAXone Inj 2 GM in Sodium Chloride 0.9% 100 ML IV SCH (10:00)
--- NOTE | 2018-05-08 12:55 | PTI REPORT ---
Thank you for the referral of Gabbi Bryson. She was seen on 05/08/18 for an inpatient evaluation secondary to malnutrition. SUBJECTIVE: The patient is a 67-year-old female. Nursing states that the patient went back on inpatient status from swingbed due to receiving IV TPN due to malnourishment. The patient reports she was diagnosed with colon cancer back in July and underwent several treatments before three weeks ago falling and breaking her hip which required an ORIF under Dr. Ayon and has been in the hospital ever since. She states she normally lives at home with her and is the primary caregiver for him, but at this time her neighbors and friends and family have been helping with the 24-hour care that he needs. PAST MEDICAL HISTORY: Past medical history can be found in the patient's medical record. OBJECTIVE FINDINGS: Objective findings: The patient's incision at this time presents at 90% healed with no signs or symptoms of infection. Range of motion/Strength: Range of motion of the patient's right hip was not formally tested due to surgery; however, her strength within her available range of motion is 3+/5. Transfers/Bed mobility: The patient requires moderate assistance for all transfers and bed mobility due to pain and weakness of the right lower extremity. Ambulation: The patient is only able to ambulate up to 20 feet with her front wheeled walker before requiring a rest. While ambulating, the patient requires gait belt and contact guard assistance for concerns with safety as well as verbal cues for picking up her feet. Pain: The patient reports her pain level at best is 3/10 and at worst an 8/10 on the verbal analog scale (0=no pain, 10=worst pain). ASSESSMENT: Problem List: Decreased mobility Decreased ability to complete transfers Decreased strength/endurance Short-Term Goals: To be met by discharge from inpatient: Patient will be able to ambulate up to 100 feet for community and household ambulation. Patient will increase right lower extremity strength to at least 4-/5 for assistance with bed mobility and transfers. Patient will be able to perform all bed mobility and transfers with stand by assistance. Long-Term Goals: To be met following discharge from inpatient: Patient will be able to return home, independent and safe with all ADLs and transfers. TREATMENT PLAN: Patient will be seen B.I.D during the week and one time per day over the weekend as an inpatient to address the above goals and objectives. INITIAL TREATMENT: Treatment today consisted of the initial evaluation only. The patient was only able to be seen in her room due to bilateral upper extremity active IVs at this time. Treatment was provided by occupational therapy this morning and we will progress with physical therapy treatment this afternoon. CLARISSE
[2018-05-08] MEDS: Multivitamin Tab 1 TAB PO SCH (13:02)
[2018-05-08] MEDS ORDERED: Magnesium Sulfate 2gm (Premix) 2 GM/50 ML BAG IV ONE (13:44)
[2018-05-08] MEDS ORDERED: POTASSIUM CHLORIDE 20 MEQ TAB PO ONE (13:44)
--- NOTE | 2018-05-08 16:01 | PT.PROG ---
Progress Note Progress Note: S. Patient stated that she is tired this afternoon however agreed to do exercises in her room. O. Patient performed seated long arc quads, marches, ball squeezes, clam shells, resisted knee flexion, heel toe raises, all x 10 bilaterally with red thera bands, Patient then performed sit to stands x 5 Patient then ambulated 10 feet to the restroom and 10 feet back to her chair where she was left with call light and alarm. A. Patient tolerated therapy fair, Patient continues to require min assist with transfers and ambulation, she continues to fatigue easily and would continue to benefit from skilled therapy to increase strength, endurance, and safety at this time. P. Continue POC.
--- NOTE | 2018-05-08 16:18 | OT.PROG ---
Progress Note Progress Note: Occupational Therapy S: Pt. reports that she is feeling ok this afternoon. Reports R hip pain. O: Pt. was seen in her room due to IV pole. Pt. completed the following UE strengthening with RTB while sitting in chair: biceps curls, horizontal abduction, triceps extension, shoulder extension, and rows X 12 each. Pt. also completed sustained holds for shoulder flexion at 90 degrees 3 X 30 seconds and shoulder abduction 1 X 30 seconds to improve UE activity tolerance. Following OT session, pt. was left in the care of [employer] and nursing staff. A: Pt. tolerated theraband exercises well today. She did fatigue very quickly with sustained UE holds and continues to benefit from UE strengthening and activity tolerance tasks. P: Continue POC. CORDELIA Perez/Bryon
--- NOTE | 2018-05-08 16:28 | PDOC(PROG) ---
Date of Service: 05/08/18 Time of Service: 15:00 Interval History: No chest pain. Not feeling short of breath. No dizziness or lightheadedness. No vomiting this morning but the patient recalls. I spoke with her candidly about a potential need for pacemaker should she have inappropriate bradycardic heart rate with no response to exercise. I had spoken to her dermatology nurse practitioner about her significant bradycardia and no underlying etiology otherwise. It was suggested that we should exercise the patient and see if she has an appropriate elevation in heart rate, and if not, it may very well be that the patient will require a pacemaker. She is not had any pauses that I can see on any heart monitoring. The patient would be agreeable to a pacemaker. She's decided that if she has any recurrence of her colon cancer she will not really like to do chemotherapy or radiation therapy at that time. Until such time, however, she wants to continue aggressive therapy for her medical conditions. Objective : Data - Labs CBC and BMP: 05/08/18 05:40 05/08/18 05:40 Additional Lab Results: 05/08/18 05/08/18 05:40 05:40 Calcium 9.3 Phosphorus 2.9 Magnesium 1.6 Total Bilirubin 0.5 AST 29 ALT 41 Alkaline Phosphatase 121 Total Protein 4.4 L Albumin 1.8 L Globulin 2.6 Albumin/Globulin Ratio 0.60 L - EKG Data -: EKG Interpreted by Me Rate: Bradycardia EKG Shows Normal: Sinus Rhythm (From 05/07/2017. She has been as low as 40 bpm during this hospital stay.) Objective : Exam - General General Appearance: No Acute Distress, Cooperative Additional General Exam Details: Vital Signs - Last Taken Temperature 97.1 F 05/08/18 15:48 Pulse Rate 53 L 05/08/18 15:48 Respiratory Rate 12 05/08/18 15:48 Blood Pressure 107/72 05/08/18 15:48 Pulse Ox 93 05/08/18 15:48 - Eye Eye Exam: No Scleral Icterus - ENT ENT Exam: Mucous Membranes Moist Additonal ENT Exam Details: Tongue is still beefy red, consistent with probable thrush - Neck Neck Exam: JVP is not Raised - Respiratory Respiratory Exam: Breathing Non Labored, Decreased Breath Sounds - Cardiovascular Cardiovascular Exam: No Murmur, No Clicks, No Gallops, No Rubs, Bradycardia, No JVD - GI/Abdominal GI/Abdominal Exam: Normal Bowel Sounds, Non Tender, Non Distended, Soft - Extremities Extremities Exam: No Clubbing Present, No Edema Present, No Cyanosis Present - Neurological Neurological Exam: Alert, Oriented x 3, No Facial Droop, Speech Intact / Clear, Moves All Extremities Equally Assessment and Plan - Patient Problems (1) Urinary tract infection Current Visit: Yes Status: Acute Code(s): N39.0 - Urinary tract infection, site not specified Qualifiers: Urinary tract infection type: acute cystitis Hematuria presence: without hematuria Qualified Code(s): N30.00 - Acute cystitis without hematuria (2) Bradycardia Current Visit: Yes Status: Acute Code(s): R00.1 - Bradycardia, unspecified (3) Severe protein-calorie malnutrition Current Visit: Yes Status: Acute Code(s): E43 - Unspecified severe protein- calorie malnutrition (4) Coronary artery disease Current Visit: Yes Status: Chronic Code(s): I25.10 - Atherosclerotic heart disease of [place] coronary artery without angina pectoris Qualifiers: Coronary Disease-Associated Artery/Lesion type: [place] artery [place] vs. transplanted heart: [place] heart Associated angina: without angina Qualified Code(s): I25.10 - Atherosclerotic heart disease of [place] coronary artery without angina pectoris (5) Hypothyroidism Current Visit: Yes Status: Chronic Qualifiers: Hypothyroidism type: acquired Qualified Code(s): E03.9 - Hypothyroidism, unspecified (6) Morbid obesity Current Visit: Yes Status: Chronic (7) Intertrochanteric fracture of right hip Current Visit: Yes Status: Acute Code(s): S72.141A - Displaced intertrochanteric fracture of right femur, initial encounter for closed fracture Qualifiers: Encounter type: subsequent encounter Fracture type: closed Fracture alignment: nondisplaced Fracture healing: with routine healing Qualified Code(s): S72.144D - Nondisplaced intertrochanteric fracture of right femur, subsequent encounter for closed fracture with routine healing - Assessment / Plan Additional Assessment/Plan Details: Urinary tract infection as an extended spectrum [id number] organism (Escherichia coli), so I'll stop Rocephin and switched Invanz now. We'll continue IV therapy for upwards of 10 days. She has a port in place already. Continue TPN for malnutrition. Add in ensure and boost supplements. Given the persistent bradycardia, as mentioned and discussed with cardiology. The patient does not have adrenal insufficiency, she did not respond fludrocortisone, she's not responded to fluid boluses, she has not responded to stopping her beta fausto, and it could be that she has as a alla dysfunction. Sick sinus syndrome? It was suggested that we should get her in a situation where we could monitor her heart rate and exercise her. Given her recent hip fracture we think the best way to do this with repair on a stationary bike and that her pedal and see if she has any increased heart rate while doing cardiac monitoring. If she does not have any increase in her heart rate which would be appropriate with exercise, then I will discuss with cardiology and try to arrange further evaluation for pacemaker placement. Overall prognosis is still fairly guarded. No evidence of recurrent colon cancer. Plan above was discussed with patient and one of her caregivers and friends, PALAK Metz, who was present at bedside and the patient allowed me to discuss the case with her as well. Labs in a.m. Replace electrolytes
[2018-05-08] MEDS ORDERED: Ertapenem Inj 1 GM in Sodium Chloride 0.9% 100 ML IV SCH (17:00)
[2018-05-08] MEDS: Fluconazole 200mg (Premix) 200 MG/100 ML BAG IV SCH (18:32)
[2018-05-08] MEDS: LATANOPROST 0.005% LEFT EYE SCH (20:34)
[2018-05-08] MEDS: ATORVASTATIN 20 MG TABLET PO SCH (20:34)
[2018-05-08] MEDS: CALCIUM IV SCH ×2 (23:51)
[2018-05-08] MEDS: MULTIVITAMIN IV SCH ×2 (23:51)
[2018-05-08] MEDS: AA DEXT IV SCH ×2 (23:51)
[2018-05-08] MEDS: LYTES IV SCH ×2 (23:51)
[2018-05-09] MEDS: HYDROmorphone Tab 4 MG TAB PO PRN ×2 (04:45→11:10)
[2018-05-09] MEDS: LEVOTHYROXINE 112 MCG TABLET PO SCH (04:45)
[2018-05-09 05:34] LABS: BLOOD UREA NITROGEN 9 mg/dL (7-22)
[2018-05-09] MEDS: MIDODRINE 10 MG PO SCH ×2 (08:45→11:10)
[2018-05-09] MEDS ORDERED: POTASSIUM CHLORIDE 20 MEQ TAB PO ONE (09:26)
[2018-05-09] MEDS: FOLIC ACID 1 MG TABLET PO SCH (10:12)
[2018-05-09] MEDS: CITALOPRAM 20 MG TABLET PO SCH (10:12)
[2018-05-09] MEDS: Vitamin E Cap 400 IU CAP PO SCH (10:12)
[2018-05-09] MEDS: ASPIRIN EC 81 MG TABLET PO SCH (10:13)
[2018-05-09] MEDS: ASCORBIC ACID Chewable 500 MG TABLET PO SCH (10:13)
[2018-05-09] MEDS: PANTOPRAZOLE 40 MG TABLET PO SCH (10:13)
[2018-05-09] MEDS: AcetaZOLAMIDE Tab 250 MG TABLET PO SCH ×2 (10:13→13:58)
[2018-05-09 10:15] VITALS: O2SAT 95
[2018-05-09] MEDS: BRIMONIDINE TARTRATE LEFT EYE SCH (11:09)
[2018-05-09] MEDS: TIMOLOL LEFT EYE SCH (11:09)
[2018-05-09] MEDS: POTASSIUM CHLORIDE 20 MEQ TAB PO SCH (11:10)
[2018-05-09] MEDS: Multivitamin Tab 1 TAB PO SCH (11:11)
--- NOTE | 2018-05-09 12:27 | PT.PROG ---
Progress Note Progress Note: S. Patient stated that her hip is hurting this morning. O. PT was requested to assist with Stress test this morning. Patient performed sit to stand transfer then ambulated 10 feet to the restroom and performed sit to stand transfer x 3 to the wheelchair and was wheeled to the RT department where she transferred to the nu-step and performed 8 minutes on the nu-step. Patient transferred back to the wheelchair and was returned to her room and transferred back to her chair and was left with alarm and call light. A. Patient tolerated the nu-step well, she was able to complete the 8 minutes with short rest breaks for the test, she continues to require min to mod assist with transfers and ambulation, she would continue to benefit from skilled therapy to increase strength, endurance and safety at this time. P. Continue POC.
--- NOTE | 2018-05-09 13:42 | DCSUMMARY ---
Hospitalization Summary Admit Date: 05/07/2017 Discharge Date: 05/09/18 Primary Diagnosis:: symptomatic bradycardia unclear etiology Secondary Diagnosis:: Positive stress test 2014 no history of heart catheterization. Colon cancer status post hemicolectomy with ileocolonic anastomosis and repair of colon duodenal fistula. Status post chemotherapy stopped early March, radiation therapy to 04/18/2018, with 3 weeks left but patient is electing to discontinue altogether. Status post gastric bypass with low albumin level, electrolyte abnormalities, and protein calorie malnutrition Status post hip fracture 04/18/2018 status post ORIF with toe-touch weightbearin g. Patient is ambulating 30-50 feet with therapy but is fatigued very easily and therapy. Persistent hypotension ESBL urine colonization versus infection on Invanz, day 2 thrush on fluconazole, day 2 Neutropenia, but ANC greater than that patient is not requiring Neupogen shots. Hospital Course: This very pleasant 67-year-old female that has had a fairly long course in terms of her hospital stay with an inpatient stay for a hip fracture, swing bed stay, and a readmission for possible urinary tract infection with ESBL organisms versus colonization. The best way to summarize this is by problem. The patient has had persistent bradycardia of unclear etiology. She consistently has a heartbeat on telemetry monitoring in the low 40s to mid 40s and sometimes as high as the upper 50s. Her TSH was normal this year. Her cortisol level was normal. She was on metoprolol XL which was discontinued about 10 days ago with no change in her bradycardia. She has not responded to fluids. When electrolytes are normal with electrolyte replacement, there is no change in her bradycardia. She did not respond to a glucagon dose. We try to fludrocortisone trial and she did not have any response to that either. This is been accompanied by hypotension that has persisted despite discontinuing antihypertensives. She shows no other signs of sepsis but given her recent culture results with ESBL Escherichia coli, I made the decision to treat with Invanz in case this was a potential cause of bradycardia and hypotension but this has not been the case. I discussed with Dr. Escobar and he suggested that we trial her with exercise to see if she has any sort of heart rate response. We did this on a monitored fashion and her heart rate remains sinus, and increases to about 80 bpm but quickly decelerates to resting heart rate of upper 40s to low 50s within about 5-10 seconds of discontinuing exercise. I did review a prior nuclear medicine stress test (Lexiscan stress test) done in 2015 and it was positive for large mild reversible defect. The patient did not have heart catheterization at that time. I am not clear if the patient will need a pacemaker or if she has underlying coronary artery disease that is making this bradycardia and hypotension persistent. However, I am sure that she is very fatigued and it is been difficult to proceed with aggressive rehabilitation for her right hip. She is a willing and active participant, and despite her history of colon cancer, once to aggressively pursue therapy and treatment for her underlying medical conditions. The patient is status post right hip fracture with ORIF done in March 2018. She is toe-touch weightbearing on the right lower extremity. She's had some bruising that I think is more related to malnutrition and low albumin and probable decreased clotting factors although her INR is normal but that seems to be getting somewhat better. Her pain is been difficult to control and she has trouble on narcotics only thing keeping her on by mouth Dilaudid but I do think that it would be very helpful to space that out more. In terms of her gastric bypass, she does have malnutrition and electrolyte issues. We have replaced electrolytes throughout the hospital stays. I have her on TPN as her recent albumin has dropped to 1.5. I think she would benefit from that. In addition she has oral thrush and a vein treating her aggressively with fluconazole as I am not sure how well she is absorbing medications by mouth and would like to see that clear up so that she can hopefully improve her appetite and eat more. In terms of her colon cancer, she is not going to opt for any further therapy if there should be any recurrence, she is status post surgery as noted, and she is status post chemotherapy. Her white blood cell count does remain low which I think is residual side effects from her chemotherapy agent. She had 1 dose of Neupogen in March 2018 but has not required one since. Given these complexities, concerns about persistent bradycardia and her exercise endurance, with these potentially being signs of coronary artery disease or possibly sick sinus node but with malnutrition, possible urinary tract infection with ESBL organism, electrolyte replacement, history of gastric bypass, I felt it best to consider transfer to a facility with cardiology to evaluate the patient. Dr. Escobar told me he would be willing to evaluate the patient but best to be admitted by the hospitalist as there is no acute coronary syndrome at this time. I spoke with Dr. Bland who graciously accepted the patient. I informed him that we would accept the patient back to swing bed upon resolution of evaluation and management of the bradycardia and hypotension issues and whether or not this could be related to coronary artery disease or sick sinus. Today, the patient does not complain of any chest pain, shortness breath, but she knows that she fatigues quite easily with activities. She complains of right lower extremity pain in her hip fracture which is been somewhat persistent. I think she does get a little bit more sedated than she should with narcotics. Assessment and Plan: 1. As per discharge assessments noted 2. Disposition: Patient is discharged to [facility] 3. Condition on discharge, stable and improved. Please note the patient's CODE STATUS is DO NOT RESUSCITATE. The patient has been very specific with me that aside from colon cancer and potential future treatments for that, she wants to continue to treat her medical conditions aggressively otherwise. She would not opt for chemotherapy or radiation therapy again. 4. Diet: regular diet 5. Activities: Continue PT and OT with toe-touch weightbearing 6. Follow-Up: 1. Please, if at all possible, note that we will accept the patient back to swing bed here in [place] should she continue to require rehabilitation 7. Medications at the Time of Discharge: Active Medications Generic Name Dose Route Start Last Admin Trade Name Freq PRN Reason Stop Dose Admin Acetaminophen 650 mg 05/07/18 14:59 Tylenol PO Q6H PRN Pain or Fever Acetazolamide 250 mg 05/07/18 17:00 05/09/18 10:13 Diamox PO 250 mg QID ESTEFANI Administration Ascorbic Acid 500 mg 05/08/18 09:00 05/09/18 10:13 Vitamin C PO 500 mg DAILY ESTEFANI Administration Aspirin 81 mg 05/08/18 09:00 05/09/18 10:13 Aspirin Ec PO 81 mg DAILY ESTEFANI Administration Atorvastatin Calcium 20 mg 05/07/18 21:00 05/08/18 20:34 Lipitor PO 20 mg BEDTIME ESTEFANI Administration Calcium Carbonate 2 tab 05/07/18 15:04 Tums PO Q6H PRN Heartburn Citalopram Hydrobromide 20 mg 05/08/18 09:00 05/09/18 10:12 Celexa PO 20 mg DAILY ESTEFANI Administration Diphenoxylate HCl/Atropine 1 tab 05/07/18 15:04 Lomotil 2.5/0.025 Mg PO Q6H PRN Diarrhea Folic Acid 1 mg 05/08/18 09:00 05/09/18 10:12 Folic Acid PO 1 mg DAILY ESTEFANI Administration Heparin Sodium (Porcine) 500 unit 05/07/18 15:04 Heparin Lock Inj (For Central Line) IVP DAILY PRN Flush Hydromorphone HCl 4 mg 05/07/18 15:04 05/09/18 11:10 Dilaudid Tab PO 4 mg Q4H PRN Administration Pain Sodium Chloride 25 mls @ 200 mls/hr 05/07/18 14:59 05/08/18 17:17 Normal Saline 0.9% IV 200 mls/hr .Post Infusion PRN Administration No Primary IV for Flush ONLY Fluconazole/Sodium Chloride 200 mg in 100 mls @ 100 mls/hr 05/07/18 17:00 05/08/18 18:32 Diflucan 200mg (Premix) IV 100 mls/hr Q24H ESTEFANI Administration Fat Emulsion Intravenous 250 mls @ 20 mls/hr 05/07/18 21:00 05/07/18 21:14 Intralipid Inj 20% IV 20 mls/hr Q48H ESTEFANI Administration Multivitamins/Minerals 10 ml/ 1,010 mls @ 50 mls/hr 05/07/18 17:30 05/08/18 23:51 Amino Ac/Electrol/Dextrose/ IV 50 ml/hr Calcium .[id number] ESTEFANI 50 mls/hr Administration Ertapenem 1 gm/ Sodium 100 mls @ 200 mls/hr 05/08/18 17:00 05/08/18 17:09 Chloride IV 200 mls/hr Q24H ESTEFANI Administration Levothyroxine Sodium 112 mcg 05/08/18 05:30 05/09/18 04:45 Synthroid PO 112 mcg DAILY@0530 ESTEFANI Administration Lidocaine HCl 0.5 ml 05/07/18 14:59 Lidocaine Buffered Inj SUBD ONCE PRN IV Starts Lidocaine/Prilocaine 1 applic 05/07/18 15:04 Emla Cream TOPICAL ONCE PRN port/catheter care Midodrine 10 mg 05/08/18 07:00 05/09/18 11:10 Proamatine PO 10 mg 0700,1100,1500 ESTEFANI Administration Multivitamins Therapeutic 1 tab 05/08/18 12:00 05/09/18 11:11 Thera Tab PO 1 tab C MEG ESTEFANI Administration Non-Formulary Medication 1 drp 05/07/18 21:00 05/09/18 11:09 Brimonidine Tartrate/Timolol [Combigan 0.2%-0.5% Eye Drops] LEFT EYE 1 drp BID ESTEFANI Administration Non-Formulary Medication 1 drp 05/07/18 21:00 05/08/18 20:34 Latanoprost 0.005% LEFT EYE 1 drp BEDTIME ESTEFANI Administration Ondansetron HCl 4 mg 05/07/18 14:59 05/07/18 19:24 Zofran Inj IVP 4 mg Q4H PRN Administration NAUSEA / VOMITING Pantoprazole Sodium 40 mg 05/07/18 17:30 05/09/18 10:13 Protonix PO 40 mg AC BK DIN ESTEFANI Administration Potassium Chloride 20 meq 05/08/18 09:00 05/09/18 11:10 Klor-Con PO 20 meq DAILY ESTEFANI Administration Prochlorperazine Maleate 10 mg 05/07/18 15:04 Compazine PO Q8H PRN nausea/vomiting Vitamin E 400 iu 05/08/18 09:00 05/09/18 10:12 Vitamin E Cap PO 400 iu DAILY ESTEFANI Administration 8. Time, care, counseling and coordination of care for this discharge is greater than 30 minutes. Exam - Vitals Vital Signs: Vital Signs Temperature 97.8 F Temperature Source Temporal Artery Scan Pulse Rate [Pulse Oximeter] 44 Pulse Rate 44 Respiratory Rate 20 Blood Pressure [Right Arm] 93/72 Blood Pressure [Left Arm] 108/63 Pulse Ox 95 Oxygen Flow Rate 2 Oxygen Delivery Method Room Air Height 5 ft 3 in Weight 181 lb - General General Appearance: No Acute Distress, Cooperative - Head Head Exam: Normal Inspection, Normocephalic, Atraumatic - Eye Eye Exam: POSITIVE: No Scleral Icterus - ENT ENT Exam: POSITIVE: Mucous Membranes Moist - Neck Neck Exam: JVP is not Raised - Respiratory Respiratory Exam: POSITIVE: Clear to Auscultation - Bilaterally, Breathing Non Labored - Cardiovascular Cardiovascular Exam: POSITIVE: No Murmur, No Clicks, No Gallops, No Rubs, Bradycardia, No JVD - GI/Abdominal GI/Abdominal Exam: POSITIVE: Normal Bowel Sounds, Non Distended, Soft - Extremities Extremities Exam: POSITIVE: No Clubbing Present, No Cyanosis Present Additional Extremities Exam Details: Has trace edema right lower extremity. Ecchymosis and bruising along right lower extremity looked much better. Ultrasound negative for DVT - Neurological Neurological Exam: POSITIVE: Alert, Oriented x 3, No Facial Droop, Speech Intact / Clear, Moves All Extremities Equally - Psychiatric Psychiatric Exam: POSITIVE: Normal Affect, Normal Mood Data Peritnent Studies: 05/07/18 05/08/18 05/08/18 17:50 05:40 05:40 WBC 2.08 L Hgb 10.1 L Hct 31.4 L Plt Count 179 Neut % (Auto) 57.7 Lymph % (Auto) 23.1 Dickenson % (Auto) 14.4 Eos % (Auto) 3.8 Baso % (Auto) 0.5 Sodium Potassium Chloride Carbon Dioxide Anion Gap BUN Creatinine BUN/Creatinine Ratio Glucose Calculated Osmolality Calcium Phosphorus Magnesium Total Bilirubin 0.5 AST 29 ALT 41 Alkaline Phosphatase 121 NT-Pro-B Natriuret Pep Total Protein 4.4 L Albumin 1.8 L Globulin 2.6 Albumin/Globulin Ratio 0.60 L Triglycerides 46 05/09/18 05/09/18 05/09/18 05:00 05:00 05:00 WBC Hgb Hct Plt Count Neut % (Auto) Lymph % (Auto) Dickenson % (Auto) Eos % (Auto) Baso % (Auto) Sodium 138 Potassium 3.7 L Chloride 111 Carbon Dioxide 21 L Anion Gap 6 BUN 9 Creatinine 0.5 BUN/Creatinine Ratio 18.00 Glucose 90 Calculated Osmolality 284.0 Calcium 8.9 Phosphorus 2.9 Magnesium 2.0 Total Bilirubin AST ALT Alkaline Phosphatase NT-Pro-B Natriuret Pep 540 H Total Protein Albumin Globulin Albumin/Globulin Ratio Triglycerides 10/08/17 12/27/17 04/23/18 11:22 15:08 04:30 Iron TIBC % Saturation Ferritin 203.00 Vitamin B12 Vitamin D 25-Hydroxy 26.1 L Serum Folate TSH 1.81 Cortisol AM Sample Urine Nitrate Urine Bilirubin Ur Leukocyte Esterase Urine WBC Urine Bacteria 04/23/18 04/23/18 04/29/18 04:30 04:30 08:10 Iron 42 TIBC 173 L % Saturation 24.28 Ferritin Vitamin B12 709 Vitamin D 25-Hydroxy Serum Folate 3.82 TSH Cortisol AM Sample 13 Urine Nitrate Urine Bilirubin Ur Leukocyte Esterase Urine WBC Urine Bacteria 05/06/18 18:45 Iron TIBC % Saturation Ferritin Vitamin B12 Vitamin D 25-Hydroxy Serum Folate TSH Cortisol AM Sample Urine Nitrate Positive A Urine Bilirubin Negative Ur Leukocyte Esterase Trace Urine WBC 3-5 Urine Bacteria Many H Procedures: [address] Medicine. [facility] [place] [address] PH: DD: [phone] FAX: [phone] ~DIAGNOSTIC IMAGING REPORT~ Patient: Gabbi Bryson : 1950 Sex: F Age: 67 Exam Name: US Veins, UE/LE [employer] Exam Date: 05/07/18 Report # : [id number] CPT Code: 97674 EMR/MR #: [id number] Ordering: BARRY MCKEON Admiting: BARRY MCKEON DO Primary: Zofia Elena MS, COMMERCIAL ESTIMATOR Attending: BARRY MCKEON DO Signed ENIO Warren/CHARLA Sharma or Ismael 05/07/2018 4:03 PM History: [facility] ^right lower extremity pain, question DVT Comparison: 04/23/2018. Procedure: Right lower extremity Doppler ultrasound. Findings: There is normal flow, compressibility, and respiratory variation from the level of the common femoral vein to the popliteal vein on the right. There is normal augmentation of flow. Additionally, the deep veins below the knee that could be imaged were evaluated without evidence of thrombosis, though sensitivity is much lower in the evaluation of vessels below the knee. Impression: No sonographic evidence of deep vein thrombosis. Dictated By: 05/07/18 1806 MILAGRO GUERRA MD. Signed By: 05/07/18 1812 MILAGRO GUERRA MD. Patient Problems - Patient Problem List (1) Bradycardia Current Visit: Yes Status: Acute Code(s): R00.1 - Bradycardia, unspecified Category: Medical (2) Coronary artery disease Current Visit: Yes Status: Chronic Code(s): I25.10 - Atherosclerotic heart disease of [place] coronary artery without angina pectoris Qualifiers: Coronary Disease-Associated Artery/Lesion type: [place] artery [place] vs. transplanted heart: [place] heart Associated angina: without angina Qualified Code(s): I25.10 - Atherosclerotic heart disease of [place] coronary artery withou t angina pectoris Category: Medical (3) Urinary tract infection Current Visit: Yes Status: Acute Code(s): N39.0 - Urinary tract infection, site not specified Qualifiers: Urinary tract infection type: acute cystitis Hematuria presence: without hematuria Qualified Code(s): N30.00 - Acute cystitis without hematuria Category: Medical (4) Severe protein-calorie malnutrition Current Visit: Yes Status: Acute Code(s): E43 - Unspecified severe protein- calorie malnutrition Category: Medical (5) Hypothyroidism Current Visit: Yes Status: Chronic Qualifiers: Hypothyroidism type: acquired Qualified Code(s): E03.9 - Hypothyroidism, unspecified Category: Medical (6) Morbid obesity Current Visit: Yes Status: Chronic Category: Medical (7) Intertrochanteric fracture of right hip Current Visit: Yes Status: Acute Code(s): S72.141A - Displaced intertrochanteric fracture of right femur, initial encounter for closed fracture Qualifiers: Encounter type: subsequent encounter Fracture type: closed Fracture alignment: nondisplaced Fracture healing: with routine healing Qualified Code(s): S72.144D - Nondisplaced intertrochanteric fracture of right femur, subsequent encounter for closed fracture with routine healing Category: Medical (8) Adenocarcinoma, colon Current Visit: Yes Status: Acute Code(s): C18.9 - Malignant neoplasm of colon, unspecified Category: Medical (9) Diarrhea Current Visit: No Status: Acute Code(s): R19.7 - Diarrhea, unspecified Qualifiers: Diarrhea type: unspecified type Qualified Code(s): R19.7 - Diarrhea, unspecified Category: Medical
[2018-05-09 15:59] VITALS: BP 83/55; RESP 16; TEMP 97
--- NOTE | 2018-05-09 16:27 | OTI REPORT ---
Thank you for the referral of Gabbi Bryson. She was seen on 05/08/18 for an inpatient evaluation secondary to malnutrition. SUBJECTIVE: The patient is a 67-year-old female who had to be transferred back to inpatient status secondary to becoming very sick. They started her on medications through her IV. She fell a couple of weeks ago. At prior level of function, the patient required some assistance from her caregiver at home with tasks such as showering, everyday housekeeping tasks, and dressing. The patient lives in a one story home with a ramp to the entrance of her home which she used at prior level of function. She ambulated with use of a front wheeled walker at prior level of function. The patient lives at home with her who also needs extensive assistance for ADLs and functional mobility tasks. The patient's does also have a cognitive limitation related to dementia. The patient's radiation treatment which she was receiving on a daily basis is now on hold for her cancer. The patient has had quite a bit of diarrhea and nausea, which they are trying to treat. The patient's goal is to get stronger and better so that she can return home. PAST MEDICAL HISTORY: Past medical history can be found in the patient's medical record. OBJECTIVE FINDINGS: Pain: The patient reported pain in the right hip of 7/10 on the verbal analog scale (0=no pain, 10=worst pain) with movement. Activities of daily living: The patient requires mod assist for lower extremity dressing. She needs assistance for using the telemarketing fundraiser and assistance for balance while pulling pants up to waist level. The patient would need max assist for showering tasks. Transfers: The patient requires min assist for functional transfers from a higher surface. If she was transferring from a lower level, this would be more difficult for the patient. The patient has difficulty picking up her legs during transfers and kind of slides her feet on the floor. Range of motion: Upper extremity active range of motion is within normal limits. Strength: Shoulder strength is 3+/5 for shoulder flexion and 3/5 for shoulder abduction. ASSESSMENT: The patient's rehab potential is fair secondary to age. Problem List: Decreased upper extremity strength/range of motion Decreased functional mobility Decreased safety Decreased ability to complete ADLs Decreased balance Increased pain Short-Term Goals: To be met by discharge from inpatient: Patient will be able to dress lower extremities with modified independence and use of adaptive devices. Patient will be able to complete all toilet transfers with stand by assistance. Patient will be able to complete a bed transfer with min assist. Patient will increase upper extremity strength to 4+/5 throughout for independence with functional transfers. Long-Term Goals: To be met following discharge from inpatient: Patient will return home with 24-hour care to assist with simple ADLs and functional transfers to reduce risk of falling. TREATMENT PLAN: Patient will be seen B.I.D during the week and one time per day over the weekend as an inpatient to address the above goals and objectives. INITIAL TREATMENT: Treatment today consisted of the inpatient evaluation followed by the patient completed red theraband resisted biceps curls, internal/external rotation, shoulder extension, shoulder adduction, and rows x15 repetitions bilaterally. The patient completed a sit to stand with min assist and walked to the bathroom with increased time. The patient was able to doff pants with min assist and sat on the toilet. The patient was independent with toilet hygiene. We did put some cream on her bottom area. The patient pulled pants up with min assist for balance and walked back to her chair. The patient stated she did not have the endurance to stand at sink and complete ADLs. The patient was left with chair alarm on and call light within reach. [facility]
== END 2018-05-09 16:05 | disposition short-term general hospital (02) | DRG 308 ==
LOC: MED/SURG 15:27
PROVIDERS: ADMIT Family Medicine; ATTEND Family Medicine